=== PATIENT | male | born 1955 | race African-American/Black ===

== ENCOUNTER 2017-09-15 06:15 | Day surgery (SDC) | payer MEDICARE, MEDICAID ==
[~2017-09-15] VITALS: Ht 167.6 cm; Wt 49.5 kg
[~2017-09-15 06:15] MED LIST: CEPH500 PO; LORTA5 PO; SILV1CRE59 TOP
[2017-09-15] MEDS ORDERED: VANCOMYCIN 1 GM/200 ML PREMIX ON-CALL IV SCH (07:00)
[2017-09-15] MEDS ORDERED: VANCOMYCIN 1000 MG/NS 250 ML - implanted port/tunneled catheter IV SCH ×2 (07:00)
[2017-09-15] MEDS ORDERED: ceFAZolin 2 GM PREMIX 50 ML - implanted port/tunneled catheter insertion IV SCH (07:00)
[2017-09-15] MEDS ORDERED: POVIDONE IODINE 5% (ANTISEPSIS KIT) 4 APPLICATIONS EACH NARE SCH (07:00)
[2017-09-15] MEDS ORDERED: CHLORHEXIDINE GLUCONATE 2 % 1 PACK (2 CLOTHS) TOPICAL SCH (07:00)
[2017-09-15 07:09] VITALS: BP 99/70; PULSE 105; RESP 18; TEMP 99; O2SAT 100
[2017-09-15 07:38] LABS: AUTOMATED NEUTROPHIL # 11.5 TH/MM3 (1.8-7.7); BASOPHIL # 0.1 TH/MM3 (0-0.2); BASOPHIL % 0.6 % (0.0-2.0); EOSINOPHIL # 0.2 TH/MM3 (0-0.4); EOSINOPHIL % 1.7 % (0.0-4.0); HEMATOCRIT 34.9 % (39.0-51.0); HEMOGLOBIN 12.3 GM/DL (13.0-17.0); LYMPH % 12.1 % (9.0-44.0); LYMPHOCYTE # 1.8 TH/MM3 (1.0-4.8); MEAN CELL VOLUME 90.9 FL (80.0-100.0); MEAN CORPUSCULAR HEMOGLOBIN 31.9 PG (27.0-34.0); MEAN CORPUSCULAR HGB CONC 35.1 % (32.0-36.0); MEAN PLATELET VOLUME 6.1 FL (7.0-11.0); MONO % 8.5 % (0.0-8.0); MONOCYTE # 1.3 TH/MM3 (0-0.9); NEUT % 77.1 % (16.0-70.0); PLATELET COUNT 608 TH/MM3 (150-450); RED BLOOD COUNT 3.84 MIL/MM3 (4.50-5.90); RED CELL DISTRIBUTION WIDTH 13.4 % (11.6-17.2); WHITE BLOOD COUNT 14.9 TH/MM3 (4.0-11.0)
[2017-09-15] MEDS ORDERED: LIDOCAINE 1%/EPINEPHrine 1:100,000 SOLN 20 ML VIAL ONE (07:46)
[2017-09-15 07:51] LABS: PROTHROMBIN TIME - PATIENT 11.4 SEC (9.8-11.6)
[2017-09-15 07:52] LABS: INTERNATIONAL NORMALIZED RATIO 1.1 RATIO
[2017-09-15] MEDS ORDERED: MIDAZOLAM HCL 2 MG/2 ML VIAL ONE (07:55)
[2017-09-15 09:15] VITALS: BP 118/69; PULSE 88; RESP 18; TEMP 97.7; O2SAT 93
--- NOTE | 2017-09-15 09:17 | PD.RAD ---
Post Procedure Progress Note Pre Procedure Diagnosis: (1) Neck mass Post Procedure Diagnosis: (1) Neck mass Procedure Date: September 15, 2017 Supervising Radiologist: Roberto Jones Proceduralist/Assist: Armando Sharma, RT(R), Xochitl Gamez RT(R) Anesthesia: Conscious Sedation Plan of Activity Patient to Unit: ROPU Patient Condition: Good See PACS Report for procedural detail/treatment Roberto Jones MD September 15, 2017 09:17
[2017-09-15 09:30] VITALS: BP 105/71; PULSE 89; RESP 18; O2SAT 100
[2017-09-15 10:00] VITALS: BP 95/67; PULSE 77; RESP 18; O2SAT 100
--- NOTE | 2017-09-15 10:06 | RADRPT ---
EXAM DATE: 09/15/2017 10:00 AM EDT AGE/SEX: 62 years / Male INDICATIONS: Patient presents with esophageal cancer and right neck mass. CLINICAL DATA: This is the patient's initial encounter. Patient reports that signs and symptoms have been present for 2 months and indicates a pain score of 0/10. MEDICAL/SURGICAL HISTORY: . ETOHSmokingHTNDysphagiaNeck massThyroid disease . COMPARISON: No prior [place] exams available for comparison. ORGAN: Right Neck DEVICE(S): 18 gauge Temno needle The possibility does exist that the tissue obtained will be non-diagnostic. If the sample is non-diag nostic, a repeat biopsy or surgical biopsy may need to be performed. TECHNIQUE: 1. Ultrasound guidance for needle biopsy. 2. Needle biopsy. 3. 4. . . The risks, benefits and alternatives to the procedure were explained and verbal and written consent w as obtained. The site was prepped in sterile fashion. Full sterile technique was used, including ca p, mask, sterile gloves and gown and a large sterile sheet. Hand hygiene and 2% chlorhexidine and/or betadine/alcohol prep was utilized per protocol for cutaneous antisepsis. The skin and subcutaneous tissues were infiltrated with local anesthetic solution. Sterile gel and sterile probe cover were u tilized for ultrasound guidance. With the patient on the ultrasound table, images were obtained. This again confirms a large right lo wer cervical soft tissue tissue mass likely reflecting an enlarged node. Skin overlying the mass was then prepped and draped in usual sterile fashion. 1% lidocaine solution was injected for local anesth esia. A needle was advanced into the identified target and the number of specimens as above obtained and rivera bmitted for pathologic evaluation. In total, five 18-gauge core biopsies were obtained. One sample wa s submitted in RPMI. The patient tolerated the procedure well and left the ultrasound suite in stable condition. FINDINGS: Large lower cervical soft tissue mass consistent with an enlarged lymph node. CONCLUSION: 1. Uncomplicated ultrasound-guided biopsy of large lower cervical soft tissue mass, as above. Electronically signed by: Roberto Jones MD 09/15/2017 10:05 AM EDT
[2017-09-15 10:30] VITALS: BP 102/64; PULSE 77; RESP 18; O2SAT 100
--- NOTE | 2017-10-06 09:37 | RADRPT ---
EXAM DATE: 09/15/2017 9:28 AM EDT AGE/SEX: 62 years / Male INDICATIONS: Patient presents with esophageal cancer in need of port placement for treatment. CLINICAL DATA: This is the patient's initial encounter. Patient reports that signs and symptoms have been present for 2 months and indicates a pain score of 0/10. MEDICAL/SURGICAL HISTORY: . ETOHSmokingHTNDysphasiaNeck massThyroid disease . COMPARISON: No prior exams available for comparison. FLUORO TIME (min): .28 IMAGE SERIES: SEDATION TIME (min): 10 MEDICATION(S): 2mg midazolam (Versed) IV 100mcg fentanyl (Sublimaze) IV DEVICE(S): Left 8F Xcela Plus Port . . PROCEDURE : 1. Continuous pulse oximetry and EKG monitoring. 2. Intravenous conscious sedation. 3. Ultrasound guidance for venous access. 4. Fluoroscopic guided implantable central venous port placement. The patient was placed supine. The neck was prepped in sterile fashion. Full sterile technique was u sed, including cap, mask, sterile gloves and gown, and a large sterile sheet. Hand hygiene and 2% ch lorhexidine Betadine was utilized per protocol for cutaneous antisepsis with appropriate dry time for site. Sterile gel and sterile probe cover were utilized for ultrasound guidance. The skin and sub cutaneous tissues were infiltrated with local anesthetic solution. Under direct ultrasound guidance, central venous access was accomplished in the targeted vessel. The ultrasound images depicting access guidance were stored and saved to PACS for permanent record. A s ubcutaneous pocket was created using blunt dissection. The port was introduced to the pocket. The c atheter tubing was fed through a subcutaneous tunnel to the venotomy site. The catheter tubing was c ut to a suitable length and then was introduced through a valved Peel-Away sheath and positioned with catheter tubing tip at the cavo-atrial junction level. The pocket incision was closed with subcutic ular Vicryl suture. Steri-Strips were applied. The port was flushed and locked with heparin solutio n per protocol. Sterile dressing was applied to the site. The patient tolerated the procedure well. Conscious sedation was performed with the prescribed dosages and duration as above in the presence of an independent trained radiology nurse to assist in the monitoring of the patient. EKG and oximetry remained stable throughout the procedure. The patient tolerated the procedure well and there were no complications. The patient was sent to post anesthesia recovery in stable condition. CONCLUSION: 1. Uncomplicated ultrasound and fluoroscopic guided implanted central venous port catheter placement as described in detail above. An 8 [place] Power port was placed. Electronically signed by: Roberto Jones MD 10/06/2017 9:36 AM EDT
== END 2017-09-15 11:30 | disposition home or self-care (01) ==
LOC: HRAD 06:15 → HRIP 06:36 → HRAD 11:30
PROVIDERS: ATTEND Internal Medicine Hematology & Oncology
DX: C49.0 Malignant neoplasm of connective and soft tissue of head, face and neck (principal); C15.9 Malignant neoplasm of esophagus, unspecified; I10 Essential (primary) hypertension; R47.02 Dysphasia; E07.9 Disorder of thyroid, unspecified; F17.200 Nicotine dependence, unspecified, uncomplicated; Z01.818 Encounter for other preprocedural examination
CPT/HCPCS: 20206; 36561; 76937; 76942; 77001; 85025; 85610; 85730; 88184; 88185; 88305; 88342; 99152; C1788; J0690; J1642; J2250; J3010; J3370; 88341

== ENCOUNTER → 2017-10-12 | Outpatient (CLI) | payer MEDICARE ==
--- NOTE | 2017-10-14 09:16 | RSPPFT ---
DATE OF PROCEDURE: 10/12/17 COMMENTS: Spirometry with FVC of 2.6 predicted 3.5, FEV1 of 1.9 predicted 2.8, FEV1/FVC ratio 72% predicted 81%. There is a mild decrease in the FEF 25-75 implying a mild obstructive lung defect. Mild air trapping is present. Airways resistance is increased. DLCO is decreased. IMPRESSION: On the basis of the above, patient has an obstructive lung defect with no response to bronchodilator. Increased airways resistance and decreased DLCO.
== END ==
LOC: HRSP 09:55
PROVIDERS: ATTEND Internal Medicine Pulmonary Disease
DX: J44.9 Chronic obstructive pulmonary disease, unspecified (principal)
CPT/HCPCS: 36600; 82805; 94060; 94618; 94726; 94729

== ENCOUNTER 2018-03-03 08:55 | Inpatient (IN) ==
[2018-03-03] MEDS ORDERED: Sodium Chlor 0.9% Inj 500 ML IV.CONT ONE (10:45)
[2018-03-03] MEDS ORDERED: Chlorhexidine Gluconate 2% 1 Pack (2 Cloths) TOPICAL ONE (10:45)
[2018-03-03] MEDS ORDERED: Metoprolol Tartrate 25 MG Tablet PO ONE (10:45)
[2018-03-03] MEDS ORDERED: ceFAZolin 2 GM IV; once IV.SIG ONE (11:30)
[2018-03-03] MEDS ORDERED: Bupivacaine/Epinephrine Inj 0.25% 50 ML Vial ONE (12:04)
[2018-03-03] MEDS ORDERED: Sodium Chlor 0.9% Inj 250 ML IV.CONT ONE (12:20)
[2018-03-03] MEDS ORDERED: Phenylephrine/NS 1000 MCG/10ML Syringe IV.PUSH ONE (12:20)
[2018-03-03] MEDS ORDERED: Lidocaine PF 1% Inj 5 ML Syringe INFILTRATN ONE (12:20)
[2018-03-03] MEDS ORDERED: Neostigmine Inj 5 MG/5 ML Syringe IV.PUSH ONE (12:20)
[2018-03-03] MEDS ORDERED: Glycopyrrolate Inj 1 MG/5 ML Syringe IV.PUSH ONE (12:20)
[2018-03-03] MEDS ORDERED: fentaNYL Citrate Inj 100 MCG/2 ML Ampul ONE ×2 (12:41→16:39)
[2018-03-03 14:05] LABS: Hemoglobin 7.9 gm/dL (13.0-17.0); Mean Corpuscular HGB Conc 34.2 % (32.0-36.0); Mean Corpuscular Volume 102.4 fL (80.0-100.0); Mean Platelet Volume 5.6 fL (7.0-11.0); Platelet Count 311 th/mm3 (150-450); Red Blood Count 2.25 mil/mm3 (4.50-5.90); Red Cell Distribution Width 16.1 % (11.6-17.2); White Blood Count 8.9 th/mm3 (4.0-11.0)
[2018-03-03 14:11] LABS: VBG Base Excess -0.4 mmol/L (-2-2); VBG Blood Gas Oxygen Content 5.7 Vol % (9.0-17.0); VBG PCO2 49 mmHG (44-48); VBG PH 7.33 (7.360-7.400); VBG PO2 33 mmHG (35-40)
[2018-03-03] MEDS ORDERED: Morphine Inj 4 MG/ML Vial IV.PUSH PRN (15:37)
[2018-03-03] MEDS ORDERED: Post-op Orders (for Pharmacy) OTHER ONE (15:37)
[2018-03-03] MEDS ORDERED: Naloxone Inj 0.4 MG/ML Vial IV.PUSH PRN (15:37)
[2018-03-03] MEDS ORDERED: Promethazine 25 MG Supp RECTAL PRN (15:37)
[2018-03-03] MEDS ORDERED: *morphine SULFATE 10 MG/ML PERIprocedure ONLY ONE (16:50)
[2018-03-03] MEDS: Pantoprazole Inj 40 MG Vial IV.PUSH SCH (16:56)
--- NOTE | 2018-03-03 19:58 | MP ---
cc: Evgeny Bahena MD DATE OF OPERATION: 03/03/2018 PREOPERATIVE DIAGNOSIS: 1. Stage IV esophageal carcinoma. 2. 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 POSTOPERATIVE DIAGNOSES: 1. Stage IV esophageal carcinoma. 2. 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 PROCEDURES: 1. Resection of large bulky 15 cm right cervical metastatic carcinoma. 2. Closure of 8 x 8 cm defect of the skin with myocutaneous rotational flap. ATTENDING SURGEON: Evgeny Bahena MD ASSISTANTS: Olvin Aldrich MD of Vascular Surgery was present for a portion of the mass resection. INTRAOPERATIVE CONSULTATION: Olvin Aldrich MD of Vascular Surgery to assist in removing the tumor off of the internal jugular vein, as well as other vascular procedures. Please see Dr. Aldrich's full dictated intraoperative procedure. SECOND PAVING BED MAKER: Staff. BLOOD LOSS: 600 mL COMPLICATIONS: A venotomy in right jugular vein area of a lateral branch. FINDINGS: 1. A 15 cm in greatest dimension irregularly shaped cystic metastatic carcinoma of the right neck, densely adhered to the internal jugular vein. 2. A 5 x 9 cm rotational myocutaneous flap from the pectoralis major muscle rotated up to the neck to close skin and soft tissue defect of the right neck. 3. Metastatic carcinoma still present at the thoracic inlet, unresectable through neck incision. INDICATIONS FOR PROCEDURE: The patient is a 62-year-old male who is status post chemotherapy and radiation for stage IV esophageal carcinoma. The patient is currently having severe pain and symptoms from a large right metastatic cervical lymph node. This was the main portion of the patient's morbidity and was causing compressive symptoms and impending airway obstruction. Surgical Oncology was asked to see the patient urgently for consideration of resection as the patient already had radiation to the area and could receive no further radiation. After discussion with the patient and the family about the last resort nature of the surgery and the terminal patient for palliative purposes, I felt and the patient felt this was reasonable to proceed in an attempt to palliate his symptoms in this unfortunate situation. The patient and the family agreed to undergo the procedure. DESCRIPTION OF PROCEDURE: The patient was taken to the operating room and placed in a supine position and placed under general endotracheal anesthesia. The patient's neck and chest were prepped and draped in a sterile fashion. Timeout was performed. Local anesthetic was instilled around the large mass, which was mainly fungating externally from the patient's neck. We used Bovie electrocautery through the skin and subcutaneous tissue down to the platysma muscle 360 degrees around the mass. I then carefully used the right angle to dissect our planes. We dissected the mass off of the right SCM and off of the clavicle inferiorly and off of the level 5 of the neck as well, all with a right angle using Bovie electrocautery as well as some Vicryl ties. We did tie off the external jugular. We continued our dissection. We noted this mass was actually cystic and therefore to debulk it we did remove the external cystic portion of the mass to give us better exposure as we could tell we were entering the zone 2 of the neck near the carotid and jugular vein. These were passed off piecemeal for permanent processing. We at this point noted that the internal jugular vein was densely adherent to the mass and possibly to the carotid artery as well. This was not apparent on MRI, but clearly was clinically apparent and possibly due to inflammation and scar tissue from the patient's previous radiation. Dr. Aldrich, the vascular surgeon distribution operation supervisor was asked to see the patient stat intraoperatively and came and evaluated the patient. He was able to be remove the mass from this vein and the carotid artery and did repair a venotomy. Please see a separate dictated note for his portion of the procedure. We at this point in time, continued the procedure, removed the specimen off from the thoracic inlet in the subclavicular area. There was tumor below the subclavian and in the thoracic inlet which was unable to be resected due to the neck incision not having us through this. Again, this being a palliative resection, we felt that this was not necessary as we had completely resected all the tumor in the neck. We had excellent hemostasis. We turned towards closure. We placed some Surgicel in the wound and placed a 10-[place] drain through a separate stab incision. The drain was sutured in place with a nylon suture. The defect was attempted to be closed. This was way too tight to close, as it was 8 x 8 cm in size. We undermined extensively and it still would not close primarily. I feel it was necessary to remove some tissue. I did take a myocutaneous flap using the superior portion of the right pectoralis muscle with a blood supply laterally. We incised a rhomboid type rotational flap from the superior rectus muscle after incising through the skin and taking off the pectoralis muscle off of the medial insertion. We rotated this up over the clavicle and this filled our defect as far as tissue solorzano and gave us good skin coverage of the skin paddle. We sutured 3-0 Vicryl sutures in a deep dermal fashion to close this as well as approximately 35 or 40 3-0 nylon vertical mattress sutures. We had excellent technical closure with minimal tension throughout the wound and the flap. It was pink and viable. A drain was placed to bulb suction. The patient had antibacterial ointment and sterile dressing applied to the neck. The patient was discontinued from anesthesia and taken to the PACU in stable condition. No apparent complications. All counts were correct. I was present and scrubbed for the entire procedure. Evgeny Bahena MD AWG/ct , 06:38 PM , 06:54 PM
--- NOTE | 2018-03-03 20:39 | P.CONCC ---
History of Present Illness Primary Care Provider: UNKNOWN History of Present Illness: 71-year-old very pleasant female with stage IV esophageal carcinoma, metastatic carcinoma to right cervical lymph node and resulting large cystic mass with compressive symptoms underwent resection of large bulky 15 cm right cervical metastatic carcinoma by Dr. Bahena. Procedure was uncomplicated and postoperatively patient is admitted to ICU. During my assessment the patient still obtunded from general anesthesia unable to provide any further history. Review of Systems unobtainable due to mental condition PMFSH - History History Provided By: Patient - Medical History Medical History: Medical History (Last Reviewed 03/03/18 @ 10:23 by Nevaeh Hinkle) Esophageal cancer, stage IV History of seizure Smoker - Surgical History Surgical History: Surgical History (Last Reviewed 03/03/18 @ 10:23 by Nevaeh Hinkle) History of vascular access device - Tobacco History Second Hand Smoke Exposure: Yes Smoking Status: Current every day smoker Tobacco Type: Cigarettes - Alcohol History How Often Do You Have a Drink Containing Alcohol: 2 to 3 times a week - Substance Use History Substance History: No History of Abuse - Travel History Recent Travel in the [place] Within the Last 8 Weeks: No Recent Travel Out of the Country Within the Last 8 Weeks: No Medications and Allergies Active Medications: Active Medications Hydrocodone Bitart/Acetaminophen ([place] 5/325) 1 tab PO Q4H PRN PRN Reason: PAIN SCALE 3 TO 5 Al Hydroxide/Mg Hydroxide (Milk Of Magnesia Liq) 30 ml PO Q12H PRN PRN Reason: Mild Constipation Diphenhydramine HCl (Benadryl Inj) 25 mg IV.PUSH Q6H PRN PRN Reason: ITCHING Lactated Ringer's (Lr 1000 Ml Inj) 1,000 mls @ 30 mls/hr IV.CONT .Q24H ONE Stop: 03/04/18 10:44 Last Admin: 03/03/18 11:00 Dose: 30 mls/hr Sodium Chloride (Ns Inj) 500 mls @ 30 mls/hr IV.CONT .[id number] ONE Stop: 03/04/18 03:24 Last Admin: 03/03/18 11:10 Dose: Not Given Cefazolin Sodium/Dextrose (Ancef 1 Gm Premix Inj) 1 gm in 50 mls @ 200 mls/hr IV.SIG Q8H JOSUÉ Stop: 03/04/18 13:14 Lactated Ringer's (Lr 1000 Ml Inj) 1,000 mls @ 100 mls/hr IV.CONT .Q10H [facility] Last Admin: 03/03/18 16:52 Dose: 100 mls/hr Miscellaneous Information ([facility] [facility]) 1 each OTHER UNSCH PRN PRN Reason: SEE LABEL COMMENTS Stop: 03/04/18 17:30 Morphine Sulfate (Morphine Inj) 4 mg IV.PUSH Q3H PRN PRN Reason: PAIN 6-10;IF UNABLE TO TAKE PO Naloxone HCl (Narcan Inj) 0.4 mg IV.PUSH UNSCH PRN PRN Reason: SEE LABEL COMMENTS Ondansetron HCl (Zofran Odt) 4 mg PO Q6H PRN PRN Reason: NAUSEA OR VOMITING Ondansetron HCl (Zofran Inj) 4 mg IV.PUSH Q6H PRN PRN Reason: NAUSEA OR VOMITING Pantoprazole Sodium (Protonix Inj) 40 mg IV.PUSH Q24H [facility] Last Admin: 03/03/18 16:56 Dose: 40 mg Promethazine HCl (Phenergan Supp) 25 mg RECTAL Q6H PRN PRN Reason: NAUSEA OR VOMITING Promethazine HCl (Phenergan) 25 mg PO Q6H PRN PRN Reason: NAUSEA OR VOMITING Allergies Allergy/AdvReac Type Severity Reaction Status Date / Time No Known Allergies Allergy Verified 03/03/18 10:23 Home Medications Medication Instructions Recorded Confirmed Type prochlorperazine maleate 10 mg PO Q6-8H PRN 11/04/17 03/03/18 History dexamethasone 1 mg PO DAILY 02/25/18 03/03/18 History omeprazole 20 mg PO DAILY 02/25/18 03/03/18 History Physical Exam Vital signs: Vital Signs 03/03/18 10:54 03/03/18 14:54 03/03/18 15:09 Temperature 98.6 F 96.6 F L 96.8 F L Pulse Rate 86 99 H 103 H Respiratory Rate 20 9 L Blood Pressure 94/70 L 131/77 120/72 Pulse Oximetry 99 100 100 03/03/18 16:28 03/03/18 16:45 03/03/18 17:00 Temperature 97.5 F L Pulse Rate 83 79 82 Respiratory Rate 20 18 18 Blood Pressure 143/74 H 140/66 136/82 Pulse Oximetry 99 97 97 03/03/18 17:15 11/14/18 17:30 03/03/18 17:49 Temperature 97.7 F 98.0 F Pulse Rate 82 85 83 Respiratory Rate 20 20 18 Blood Pressure 123/76 128/79 129/78 Pulse Oximetry 99 99 98 03/03/18 18:00 03/03/18 18:15 03/03/18 18:30 Temperature Pulse Rate 83 82 83 Respiratory Rate 16 12 16 Blood Pressure 123/82 138/76 127/76 Pulse Oximetry 99 100 100 03/03/18 18:45 Temperature Pulse Rate 79 Respiratory Rate 11 L Blood Pressure 129/73 Pulse Oximetry 100 Intake & Output 03/03/18 03/03/18 03/04/18 06:59 18:59 06:59 Intake Total 3550 / 3550 Output Total 600 / 600 40 / 40 Balance 2950 / 2950 -40 / -40 Weight 47.3 kg Intake: IV 50 / 50 Ancef 2 GM Premix Inj 2 gm In 50 / 50 50 ml @ 100 mls/hr IV.SIG ONCE ONE Rx#:[id number] Anesthesia Amount 2700 / 2700 Intake (Blood Product) Amt 800 / 800 Rbc As-3 Leukoreduced Unit 400 / 400 [id number] Rbc As-3 Leukoreduced Unit 400 / 400 [id number] Output: Estimated Blood Loss 600 / 600 Wound Drainage 40 / 40 # 1 Right Lateral Neck 40 / 40 Other: Weight On Admission 8 kg - Constitutional no acute distress - Routine HEENT Exam Head: Present: normocephalic, atraumatic Eye: Present: PERRL ENT: Present: mucous membranes moist - Routine Neck Exam Present: supple. Absent: JVD, carotid bruit Comments: Dressing post mass resection clear and dry - Routine Respiratory Exam Absent: accessory muscle use - Routine Cardiovascular Exam Present: RRR, S1, S2 - Routine Abdominal Exam Present: soft, normoactive bowel sounds - Routine Extremities Exam Absent: cyanosis, clubbing, edema - Routine Skin Exam Present: intact. Absent: cyanosis, erythema - Routine Neurological Exam Present: altered mental status Septic Shock Reassessment Septic shock perfusion: reassessment completed Assessment and Plan - Assessment and Plan Plan: Esophageal cancer, stage IV -Status post resection -Further management per general surgery and oncology History of seizure -Seizure precaution Tobacco use disorder -Monitor for withdrawal -Nicotine patch if indicated DVT GI prophylaxis -Teds SCDs -DVT prophylaxis per surgeon -Regular diet The patient has been comfortable on nasal cannula, hemodynamically stable, not in distress. Critical care medicine will sign off. Please reconsult us if needed. Level 2
[2018-03-03] MEDS: DEXTROSE IV.SIG SCH (21:23)
[2018-03-03] MEDS: CEFAZOLIN IV.SIG SCH (21:23)
--- NOTE | 2018-03-03 21:25 | MP ---
cc: Olvin Aldrich MD DATE OF OPERATION: 03/03/2018 PREOPERATIVE DIAGNOSIS: Metastatic carcinoma of the esophagus to the left neck compressive symptoms. POSTOPERATIVE DIAGNOSIS: Metastatic carcinoma of the esophagus to the left neck compressive symptoms. OPERATIVE PROCEDURE: Resection of the metastatic tumor, resection of the portion of the jugular vein with repair of jugular vein. SURGEON: Olvin Aldrich MD. ANESTHESIA: General. INDICATIONS: This 62-year-old male underwent surgery by Dr. Bahena. I was called in for intraoperative consult and help with vascular structures. At that time, Dr. Bahena had partially remove the tumor. At this point, tumor was stuck to the internal jugular vein lateral wall. The area was examined. There is an area of tumor measuring about 9 cm in length, which is tightly stuck to the internal jugular vein lateral wall. This vein is very thin and at this point, there is a laceration of the vein, which is easily controlled by freeing up the vein and then closing the laceration with a 4-0 Prolene. The tumor was dissected deeper and finally from the jugular vein. There were several arterial bleeders, which were ligated with 2-0 Vicryl stick ties, and then the tumor was completely from the vein. There is another area of bleed between the junction of the subclavian and jugular vein and this is repaired with running 5-0 Prolene and nice control obtained. Majority of tumor was now removed by Dr. Bahena and he continued the case further without me. Olvin Aldrich MD SJ/em , 08:05 PM , 08:11 PM
[2018-03-04] MEDS: CEFAZOLIN IV.SIG SCH ×2 (04:57→13:49)
[2018-03-04] MEDS: DEXTROSE IV.SIG SCH ×2 (04:57→13:49)
[2018-03-04 06:56] LABS: Baso % (Auto) 0.2 % (0.0-2.0); Hematocrit 29.7 % (39.0-51.0); Hemoglobin 10.3 gm/dL (13.0-17.0); Lymph # (Auto) 1.4 th/mm3 (1.0-4.8); Lymph % (Auto) 15.1 % (9.0-44.0); Mean Corpuscular HGB Conc 34.8 % (32.0-36.0); Mean Corpuscular Hemoglobin 32.6 pg (27.0-34.0); Mean Corpuscular Volume 93.7 fL (80.0-100.0); Mean Platelet Volume 5.7 fL (7.0-11.0); Mono # (Auto) 0.9 th/mm3 (0.0-0.9); Mono % (Auto) 10.5 % (0.0-8.0); Neut # (Auto) 6.7 th/mm3 (1.8-7.7); Neut % (Auto) 74.2 % (16.0-70.0); Platelet Count 289 th/mm3 (150-450); Red Blood Count 3.17 mil/mm3 (4.50-5.90); Red Cell Distribution Width 19.7 % (11.6-17.2)
[2018-03-04 07:08] LABS: Anion Gap 10 meq/L (5-15); Blood Urea Nitrogen 7 mg/dL (7-18); Calcium 8.7 mg/dL (8.5-10.1); Carbon Dioxide 27.4 meq/L (21.0-32.0); Chloride 100 meq/L (98-107); Glomerular Filtration Rate Greater Than 89 mL/min (>89); Glucose,Random 111 mg/dL (74-106); Potassium 4.4 meq/L (3.5-5.1); Sodium 137 meq/L (136-145)
--- NOTE | 2018-03-04 08:22 | P.PNCC ---
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 Bahena. Procedure was uncomplicated and postoperatively patient is admitted to ICU. During my assessment the patient still obtunded from general anesthesia unable to provide any further history. 03/04: Awake, alert, conversant this morning. Speech is clear and he protects his airway well. He has no problems with swallowing. Objective Vital Signs / I&O: Vital Signs 03/03/18 10:54 03/03/18 14:54 03/03/18 15:09 Temperature 98.6 F 96.6 F L 96.8 F L Pulse Rate 86 99 H 103 H Respiratory Rate 20 9 L Blood Pressure 94/70 L 131/77 120/72 Pulse Oximetry 99 100 100 03/03/18 16:28 03/03/18 16:45 03/03/18 17:00 Temperature 97.5 F L Pulse Rate 83 79 82 Respiratory Rate 20 18 18 Blood Pressure 143/74 H 140/66 136/82 Pulse Oximetry 99 97 97 03/03/18 17:15 03/03/18 17:30 03/03/18 17:49 Temperature 97.7 F 98.0 F Pulse Rate 82 85 83 Respiratory Rate 20 20 18 Blood Pressure 123/76 128/79 129/78 Pulse Oximetry 99 99 98 03/03/18 18:00 03/03/18 18:15 03/03/18 18:30 Temperature Pulse Rate 83 82 83 Respiratory Rate 16 12 16 Blood Pressure 123/82 138/76 127/76 Pulse Oximetry 99 100 100 03/03/18 18:45 03/03/18 19:00 03/03/18 19:15 Temperature Pulse Rate 79 81 81 Respiratory Rate 11 L 11 L 11 L Blood Pressure 129/73 130/74 125/72 Pulse Oximetry 100 100 100 03/03/18 19:30 03/03/18 19:45 03/03/18 20:00 Temperature 98.3 F Pulse Rate 81 80 79 Respiratory Rate 13 16 11 L Blood Pressure 118/73 113/72 119/72 Pulse Oximetry 100 100 100 03/03/18 20:15 03/03/18 20:30 03/03/18 20:45 Temperature Pulse Rate 89 88 85 Respiratory Rate 16 15 11 L Blood Pressure 133/81 115/72 118/77 Pulse Oximetry 100 100 100 03/03/18 21:00 03/03/18 21:15 03/03/18 21:23 Temperature Pulse Rate 85 84 Respiratory Rate 12 11 L 14 Blood Pressure 111/69 105/70 Pulse Oximetry 100 100 03/03/18 21:30 03/03/18 21:45 03/03/18 22:00 Temperature Pulse Rate 85 83 80 Respiratory Rate 13 11 L 11 L Blood Pressure 110/73 111/72 110/66 Pulse Oximetry 100 99 100 03/03/18 22:15 03/03/18 22:30 03/03/18 22:45 Temperature Pulse Rate 81 82 77 Respiratory Rate 14 14 12 Blood Pressure 112/63 114/64 105/64 Pulse Oximetry 100 100 100 03/03/18 23:00 03/03/18 23:02 03/03/18 23:15 Temperature Pulse Rate 79 76 Respiratory Rate 14 12 12 Blood Pressure 112/67 110/67 Pulse Oximetry 100 100 03/03/18 23:30 03/03/18 23:45 03/04/18 00:00 Temperature 98.7 F Pulse Rate 77 73 74 Respiratory Rate 12 12 10 L Blood Pressure 117/69 115/68 109/66 Pulse Oximetry 100 100 100 03/04/18 00:15 03/04/18 00:30 03/04/18 00:45 Temperature Pulse Rate 71 71 74 Respiratory Rate 14 14 12 Blood Pressure 116/67 112/63 114/65 Pulse Oximetry 100 100 100 03/04/18 01:00 03/04/18 01:15 03/04/18 01:30 Temperature Pulse Rate 70 70 67 Respiratory Rate 13 14 11 L Blood Pressure 114/64 110/64 108/64 Pulse Oximetry 100 100 100 03/04/18 01:45 03/04/18 02:00 03/04/18 02:15 Temperature Pulse Rate 77 66 69 Respiratory Rate 15 13 15 Blood Pressure 120/72 104/64 108/66 Pulse Oximetry 100 100 100 03/04/18 02:41 03/04/18 03:00 03/04/18 04:00 Temperature 98.3 F Pulse Rate 67 85 74 Respiratory Rate 21 29 H 14 Blood Pressure 113/63 Pulse Oximetry 100 100 100 03/04/18 04:09 03/04/18 04:31 03/04/18 05:00 Temperature Pulse Rate 66 66 Respiratory Rate 16 12 12 Blood Pressure 105/66 Pulse Oximetry 100 100 03/04/18 05:50 03/04/18 06:00 Temperature Pulse Rate 71 73 Respiratory Rate 12 Blood Pressure 118/71 Pulse Oximetry 100 100 Intake & Output 03/03/18 03/04/18 03/04/18 18:59 06:59 18:59 Intake Total 3550 / 3550 1340 / 1340 Output Total 600 / 600 1860 / 1860 Balance 2950 / 2950 -520 / -520 Weight 47.3 kg 49.1 kg Intake: IV 50 / 50 1100 / 1100 LR 1000 mL Inj 1,000 ML @ 100 1000 / 1000 mls/hr IV.CONT .Q10H [facility] Rx#: [id number] Ancef 1 GM Premix Inj 1 gm In 100 / 100 50 ml @ 200 mls/hr IV.SIG Q8H [facility] Rx#:[id number] Ancef 2 GM Premix Inj 2 gm In 50 / 50 50 ml @ 100 mls/hr IV.SIG ONCE ONE Rx#:[id number] Oral 240 / 240 Anesthesia Amount 2700 / 2700 Intake (Blood Product) Amt 800 / 800 Rbc As-3 Leukoreduced Unit 400 / 400 [id number] Rbc As-3 Leukoreduced Unit 400 / 400 [id number] Output: Estimated Blood Loss 600 / 600 Urine Amount (Catheter) 1800 / 1800 Condom 1800 / 1800 Wound Drainage 60 / 60 # 1 Right Lateral Neck 60 / 60 Other: Weight On Admission 8 kg Result Diagrams: 03/04/18 05:46 03/04/18 05:46 Objective Remarks: - Constitutional no acute distress, calm - Routine HEENT Exam Head: Present: normocephalic, atraumatic Eye: Present: PERRL ENT: Present: mucous membranes moist - Routine Neck Exam Present: supple. Absent: JVD, carotid bruit Comments: Airway widely patent, no obstructive noises Dressing post mass resection clear and dry - Routine Respiratory Exam Lungs clear, no wheezes or crackles. Comfortable respiratory pattern. Absent: accessory muscle use - Routine Cardiovascular Exam Present: RRR, S1, S2, no JVD. - Routine Abdominal Exam Present: soft, normoactive bowel sounds, no guarding - Routine Extremities Exam Warm limbs, well-perfused. Absent: cyanosis, clubbing, edema - Routine Skin Exam Present: intact. Absent: cyanosis, erythema - Routine Neurological Exam Present: Alert, oriented x3, cooperative. Speech is clear. moves 4 limbs spontaneously. Assessment and Plan - Assessment and Plan Plan: Esophageal cancer, stage IV -Status post resection -Further management per general surgery and oncology History of seizure -Seizure precaution Tobacco use disorder -Monitor for withdrawal -Nicotine patch if indicated DVT GI prophylaxis -Teds SCDs -DVT prophylaxis per surgeon -Regular diet Overall impression: No issues involving the upper airway or swallowing. Speech is clear, patient protects his oropharynx well, comfortable respiratory pattern.
--- NOTE | 2018-03-04 11:36 | P.PNGS ---
Subjective Interval history: Resting in bed No complaints No respiratory compromise and difficulty swallowing Physical Exam Vital signs: Vital Signs 03/03/18 14:54 03/03/18 15:09 03/03/18 16:28 Temperature 96.6 F L 96.8 F L 97.5 F L Pulse Rate 99 H 103 H 83 Respiratory Rate 9 L 20 Blood Pressure 131/77 120/72 143/74 H Pulse Oximetry 100 100 99 03/03/18 16:45 03/03/18 17:00 03/03/18 17:15 Temperature 97.7 F Pulse Rate 79 82 82 Respiratory Rate 18 18 20 Blood Pressure 140/66 136/82 123/76 Pulse Oximetry 97 97 99 03/03/18 17:30 03/03/18 17:49 03/03/18 18:00 Temperature 98.0 F Pulse Rate 85 83 83 Respiratory Rate 20 18 16 Blood Pressure 128/79 129/78 123/82 Pulse Oximetry 99 98 99 03/03/18 18:15 03/03/18 18:30 03/03/18 18:45 Temperature Pulse Rate 82 83 79 Respiratory Rate 12 16 11 L Blood Pressure 138/76 127/76 129/73 Pulse Oximetry 100 100 100 03/03/18 19:00 03/03/18 19:15 03/03/18 19:30 Temperature Pulse Rate 81 81 81 Respiratory Rate 11 L 11 L 13 Blood Pressure 130/74 125/72 118/73 Pulse Oximetry 100 100 100 03/03/18 19:45 03/03/18 20:00 03/03/18 20:15 Temperature 98.3 F Pulse Rate 80 79 89 Respiratory Rate 16 11 L 16 Blood Pressure 113/72 119/72 133/81 Pulse Oximetry 100 100 100 03/03/18 20:30 03/03/18 20:45 03/03/18 21:00 Temperature Pulse Rate 88 85 85 Respiratory Rate 15 11 L 12 Blood Pressure 115/72 118/77 111/69 Pulse Oximetry 100 100 100 03/03/18 21:15 03/03/18 21:23 03/03/18 21:30 Temperature Pulse Rate 84 85 Respiratory Rate 11 L 14 13 Blood Pressure 105/70 110/73 Pulse Oximetry 100 100 03/03/18 21:45 03/03/18 22:00 03/03/18 22:15 Temperature Pulse Rate 83 80 81 Respiratory Rate 11 L 11 L 14 Blood Pressure 111/72 110/66 112/63 Pulse Oximetry 99 100 100 03/03/18 22:30 03/03/18 22:45 03/03/18 23:00 Temperature Pulse Rate 82 77 79 Respiratory Rate 14 12 14 Blood Pressure 114/64 105/64 112/67 Pulse Oximetry 100 100 100 03/03/18 23:02 03/03/18 23:15 03/03/18 23:30 Temperature Pulse Rate 76 77 Respiratory Rate 12 12 12 Blood Pressure 110/67 117/69 Pulse Oximetry 100 100 03/03/18 23:45 03/04/18 00:00 03/04/18 00:15 Temperature 98.7 F Pulse Rate 73 74 71 Respiratory Rate 12 10 L 14 Blood Pressure 115/68 109/66 116/67 Pulse Oximetry 100 100 100 03/04/18 00:30 03/04/18 00:45 03/04/18 01:00 Temperature Pulse Rate 71 74 70 Respiratory Rate 14 12 13 Blood Pressure 112/63 114/65 114/64 Pulse Oximetry 100 100 100 03/04/18 01:15 03/04/18 01:30 03/04/18 01:45 Temperature Pulse Rate 70 67 77 Respiratory Rate 14 11 L 15 Blood Pressure 110/64 108/64 120/72 Pulse Oximetry 100 100 100 03/04/18 02:00 03/04/18 02:15 03/04/18 02:41 Temperature Pulse Rate 66 69 67 Respiratory Rate 13 15 21 Blood Pressure 104/64 108/66 113/63 Pulse Oximetry 100 100 100 03/04/18 03:00 03/04/18 04:00 03/04/18 04:09 Temperature 98.3 F Pulse Rate 85 74 Respiratory Rate 29 H 14 16 Blood Pressure Pulse Oximetry 100 100 03/04/18 04:31 03/04/18 05:00 03/04/18 05:50 Temperature Pulse Rate 66 66 71 Respiratory Rate 12 12 12 Blood Pressure 105/66 118/71 Pulse Oximetry 100 100 100 03/04/18 06:00 03/04/18 07:00 03/04/18 08:00 Temperature 98.3 F Pulse Rate 73 65 65 Respiratory Rate 11 L 12 Blood Pressure 99/63 L 119/71 Pulse Oximetry 100 100 100 Intake & Output 03/03/18 03/04/18 03/04/18 18:59 06:59 18:59 Intake Total 3550 / 3550 1340 / 1340 510 / 510 Output Total 600 / 600 1860 / 1860 Balance 2950 / 2950 -520 / -520 510 / 510 Weight 47.3 kg 49.1 kg Intake: IV 50 / 50 1100 / 1100 0 / 0 LR 1000 mL Inj 1,000 ML @ 100 1000 / 1000 0 / 0 mls/hr IV.CONT .Q10H [facility] Rx#: [id number] Ancef 1 GM Premix Inj 1 gm In 100 / 100 50 ml @ 200 mls/hr IV.SIG Q8H [facility] Rx#:[id number] Ancef 2 GM Premix Inj 2 gm In 50 / 50 50 ml @ 100 mls/hr IV.SIG ONCE ONE Rx#:[id number] Oral 240 / 240 510 / 510 Anesthesia Amount 2700 / 2700 Intake (Blood Product) Amt 800 / 800 Rbc As-3 Leukoreduced Unit 400 / 400 [id number] Rbc As-3 Leukoreduced Unit 400 / 400 [id number] Output: Estimated Blood Loss 600 / 600 Urine Amount (Catheter) 1800 / 1800 Condom 1800 / 1800 Wound Drainage 60 / 60 # 1 Right Lateral Neck 60 / 60 Other: Date of Last Bowel Movement 03/02/18 Weight On Admission 8 kg Narrative: Alert and awake RIGHT neck dressing in place; soft; minimally tender; tender to move head to the right; DANIEL with old brown bloody drainage - Urinary Catheter Management Condom Cath placed during this visit: no Results - Labs 03/05/18 04:26 03/05/18 04:26 Laboratory Results - last 24 hr 03/03/18 03/03/18 03/03/18 13:50 13:50 13:50 WBC 8.9 RBC 2.25 L Hgb 7.9 L Hct 23.0 L MCV 102.4 H MCH 35.0 H MCHC 34.2 RDW 16.1 Plt Count 311 MPV 5.6 L Neut % (Auto) Lymph % (Auto) [place] % (Auto) Eos % (Auto) Baso % (Auto) Neut # (Auto) Lymph # (Auto) [place] # (Auto) Eos # (Auto) Baso # (Auto) WBC Differential Differential Comment Puncture Site Drawn in or Patient Temperature 98.6 VBG pH 7.33 L VBG pCO2 49 H VBG pO2 33 L VBG HCO3 25 VBG O2 Saturation 50 L VBG O2 Content 5.7 L VBG Base Excess -0.4 VBG Carboxyhemoglobin 3.5 VBG Methemoglobin 1.7 Hemoglobin 8.1 L O2 Delivery Device Or Liter Flow 0.00 Vent Setting Or Critical Value No Sodium Potassium Chloride Carbon Dioxide Anion Gap BUN Creatinine Estimated GFR Random Glucose Calcium Blood Type O Positive Antibody Screen Negative MTS Gel Crossmatch See Detail 03/03/18 03/04/18 03/04/18 14:15 05:46 05:46 WBC 9.0 RBC 3.17 L Hgb 10.3 L D Hct 29.7 L MCV 93.7 D MCH 32.6 MCHC 34.8 RDW 19.7 H D Plt Count 289 MPV 5.7 L Neut % (Auto) 74.2 H Lymph % (Auto) 15.1 [place] % (Auto) 10.5 H Eos % (Auto) 0.0 Baso % (Auto) 0.2 Neut # (Auto) 6.7 Lymph # (Auto) 1.4 [place] # (Auto) 0.9 Eos # (Auto) 0.0 Baso # (Auto) 0.0 WBC Differential . Differential Comment Auto diff final Puncture Site Patient Temperature VBG pH VBG pCO2 VBG pO2 VBG HCO3 VBG O2 Saturation VBG O2 Content VBG Base Excess VBG Carboxyhemoglobin VBG Methemoglobin Hemoglobin O2 Delivery Device Liter Flow Vent Setting Critical Value Sodium 137 Potassium 4.4 Chloride 100 Carbon Dioxide 27.4 Anion Gap 10 BUN 7 Creatinine 0.54 L Estimated GFR Greater than 89 Random Glucose 111 H Calcium 8.7 Blood Type Antibody Screen MTS Gel Crossmatch See Detail Assessment and Plan - Assessment (1) Esophageal carcinoma Code(s): C15.9 - Malignant neoplasm of esophagus, unspecified Status: Acute Plan: 62 year old male with stage IV esophageal cancer; metastatic carcinoma to RIGHT cervical LN; POD1 resection of RIGHT cervical LN large bulky tumor; closure of 8x8cm defect of the skin with myocutaneous rotational flap -Stable overnight -No airway compromise -Continue clear liquids -Continue IVF -Hmg stable---recheck tomorrow -OOB after 24 hours post op -Transfer to - Attending Attestation The exam, history, and the medical decision-making described in the above note were completed with the assistance of the mid-level provider. I reviewed and agree with the findings presented. I attest that I had a [id number] encounter with the patient on the same day, and personally performed and documented my assessment and findings in the medical record. postop right neck mass resection and flap closure doing well skin/flap viable airway stable, ok to floor
[2018-03-04] MEDS: Pantoprazole Inj 40 MG Vial IV.PUSH SCH (18:00)
[2018-03-05 06:04] LABS: Baso % (Auto) 0.3 % (0.0-2.0); Eos % (Auto) 0.8 % (0.0-4.0); Hematocrit 28.6 % (39.0-51.0); Lymph # (Auto) 1.4 th/mm3 (1.0-4.8); Lymph % (Auto) 24.4 % (9.0-44.0); Mean Corpuscular HGB Conc 35.1 % (32.0-36.0); Mean Corpuscular Hemoglobin 33.1 pg (27.0-34.0); Mean Corpuscular Volume 94.2 fL (80.0-100.0); Mean Platelet Volume 5.6 fL (7.0-11.0); Mono # (Auto) 0.6 th/mm3 (0.0-0.9); Mono % (Auto) 10.2 % (0.0-8.0); Neut # (Auto) 3.7 th/mm3 (1.8-7.7); Neut % (Auto) 64.3 % (16.0-70.0); Platelet Count 278 th/mm3 (150-450); Red Blood Count 3.04 mil/mm3 (4.50-5.90); Red Cell Distribution Width 19.8 % (11.6-17.2); White Blood Count 5.8 th/mm3 (4.0-11.0)
[2018-03-05 06:30] LABS: Albumin 2.1 g/dL (3.4-5.0); Anion Gap 8 meq/L (5-15); Aspartate Aminotransferase 17 U/L (15-37); Blood Urea Nitrogen 6 mg/dL (7-18); Calcium 8.6 mg/dL (8.5-10.1); Carbon Dioxide 30.1 meq/L (21.0-32.0); Chloride 100 meq/L (98-107); Glomerular Filtration Rate Greater Than 89 mL/min (>89); Glucose,Random 78 mg/dL (74-106); Sodium 138 meq/L (136-145)
[2018-03-05 06:31] LABS: Alanine Aminotransferase 8 U/L (12-78)
[2018-03-05 06:33] LABS: Alkaline Phosphatase 63 U/L (45-117)
--- NOTE | 2018-03-05 12:54 | P.PN ---
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 Bahena. Procedure was uncomplicated and postoperatively patient is admitted to ICU. Obtunded post anesthesia. 03/04: Awake, alert, conversant this morning. Speech is clear and he protects his airway well. He has no problems with swallowing. Hospitalist Notes: 03/05: Seen in his bedroom, no nausea, vomit or diarrhea, continue with Right neck DANIEL in place, no yet removed not yet recommended for discharge by Surgeon. Physical Exam Vital signs: Vital Signs 03/04/18 13:00 03/04/18 16:00 03/04/18 17:00 Temperature 98.8 F 99.3 F Pulse Rate 100 H 78 82 Respiratory Rate 34 H 13 20 Blood Pressure 122/77 112/73 120/78 Pulse Oximetry 98 96 03/04/18 20:00 03/05/18 00:00 03/05/18 08:00 Temperature 97.5 F L 98.9 F 98.6 F Pulse Rate 91 H 76 81 Respiratory Rate 14 16 18 Blood Pressure 116/63 112/71 114/74 Pulse Oximetry 96 95 94 L 03/05/18 11:55 Temperature 98.4 F Pulse Rate 82 Respiratory Rate 18 Blood Pressure 120/75 Pulse Oximetry 94 L Intake & Output 03/04/18 03/05/18 03/05/18 18:59 06:59 18:59 Intake Total 1864 / 1864 1000 / 1000 Output Total 191 / 1910 2500 / 2500 Balance -46 / -46 -1500 / -1500 Weight 52.9 kg Intake: IV 684 / 684 1000 / 1000 LR 1000 mL Inj 1,000 ML @ 100 634 / 634 1000 / 1000 mls/hr IV.CONT .Q10H [facility] Rx#: [id number] Ancef 1 GM Premix Inj 1 gm In 50 / 50 50 ml @ 200 mls/hr IV.SIG Q8H [facility] Rx#:[id number] Oral 1180 / 1180 Output: Urine 2500 / 2500 Urine Amount (Catheter) 1899 / 1900 Condom 1899 Wound Drainage 0 / 0 # 1 Right Lateral Neck 0 / 0 Other: Date of Last Bowel Movement 03/02/18 03/02/18 Narrative: - Constitutional no acute distress, calm - Routine HEENT Exam Head: Present: normocephalic, atraumatic Eye: Present: PERRL ENT: Present: mucous membranes moist - Routine Neck Exam Present: supple. Absent: JVD, carotid bruit Comments: Airway widely patent, no obstructive noises Dressing post mass resection clear and dry - Routine Respiratory Exam Lungs clear, no wheezes or crackles. Comfortable respiratory pattern. Absent: accessory muscle use - Routine Cardiovascular Exam Present: RRR, S1, S2, no JVD. - Routine Abdominal Exam Present: soft, normoactive bowel sounds, no guarding - Routine Extremities Exam Warm limbs, well-perfused. Absent: cyanosis, clubbing, edema - Routine Skin Exam Present: intact. Absent: cyanosis, erythema - Routine Neurological Exam Present: Alert, oriented x3, cooperative. Speech is clear. moves 4 limbs spontaneously. Alert and awake RIGHT neck dressing in place; soft; minimally tender; tender to move head to the right; DANIEL with old brown bloody drainage - Urinary Catheter Management Condom Cath placed during this visit: no Results - Labs CBC & Chem 7: 03/05/18 04:26 03/05/18 04:26 Laboratory Results - last 24 hr 03/05/18 03/05/18 04:26 04:26 WBC 5.8 RBC 3.04 L Hgb 10.0 L Hct 28.6 L MCV 94.2 MCH 33.1 MCHC 35.1 RDW 19.8 H Plt Count 278 MPV 5.6 L Neut % (Auto) 64.3 Lymph % (Auto) 24.4 [place] % (Auto) 10.2 H Eos % (Auto) 0.8 Baso % (Auto) 0.3 Neut # (Auto) 3.7 Lymph # (Auto) 1.4 [place] # (Auto) 0.6 Eos # (Auto) 0.0 Baso # (Auto) 0.0 WBC Differential . Differential Comment Auto diff final Sodium 138 Potassium 4.0 Chloride 100 Carbon Dioxide 30.1 Anion Gap 8 BUN 6 L Creatinine 0.53 L Estimated GFR Greater than 89 Random Glucose 78 Calcium 8.6 Total Bilirubin 0.3 AST 17 ALT 8 L Alkaline Phosphatase 63 Total Protein 7.0 Albumin 2.1 L - Procedures DATE OF OPERATION: 03/03/2018 PREOPERATIVE DIAGNOSIS: Metastatic carcinoma of the esophagus to the left neck compressive symptoms. POSTOPERATIVE DIAGNOSIS: Metastatic carcinoma of the esophagus to the left neck compressive symptoms. OPERATIVE PROCEDURE: Resection of the metastatic tumor, resection of the portion of the jugular vein with repair of jugular vein. SURGEON: Olvin Aldrich MD. Assessment and Plan - Plan Metastatic Carcinoma of the Esophagus to the left Neck with compressive symptoms -Status post resection of the Metastatic tumor, resection of the portion of the Jugular vein with repair of jugular vein. 03/03/18 -not yet removed his right DANIEL drainage, continue management for today awaiting final recommendations by General Surgery. History of seizure -Seizure precaution Tobacco use disorder strongly recommended to stop smoking. -Monitor for withdrawal -Nicotine patch if indicated DVT GI prophylaxis -Teds SCDs -DVT prophylaxis per surgeon -Regular diet Code Status: Full code. Discussed Condition With: Patient and Nurse. Discharge Planning: Expected by tomorrow.
[2018-03-05] MEDS ORDERED: Influenza (Quadrivalent) Vaccine 0.5 ML Syringe IM ONE (14:15)
[2018-03-05] MEDS: Pantoprazole Inj 40 MG Vial IV.PUSH SCH (15:50)
--- NOTE | 2018-03-05 18:05 | P.PNGS ---
Subjective Interval history: Doing well No complaints Up to chair Pain controlled Physical Exam Vital signs: Vital Signs 03/04/18 20:00 03/05/18 00:00 03/05/18 08:00 Temperature 97.5 F L 98.9 F 98.6 F Pulse Rate 91 H 76 81 Respiratory Rate 14 16 18 Blood Pressure 116/63 112/71 114/74 Pulse Oximetry 96 95 94 L 03/05/18 11:55 03/05/18 16:00 Temperature 98.4 F 98.6 F Pulse Rate 82 84 Respiratory Rate 18 18 Blood Pressure 120/75 126/78 Pulse Oximetry 94 L 96 Intake & Output 03/04/18 03/05/18 03/05/18 18:59 06:59 18:59 Intake Total 1864 / 1864 1000 / 1000 0 / 0 Output Total 1910 / 1910 2500 / 2500 Balance -46 / -46 -1500 / -1500 0 / 0 Weight 52.9 kg Intake: IV 684 / 684 1000 / 1000 0 / 0 LR 1000 mL Inj 1,000 ML @ 100 634 / 634 1000 / 1000 0 / 0 mls/hr IV.CONT .Q10H [facility] Rx#: [id number] Ancef 1 GM Premix Inj 1 gm In 50 / 50 50 ml @ 200 mls/hr IV.SIG Q8H [facility] Rx#:[id number] Oral 1180 / 1180 Output: Urine 2500 / 2500 Urine Amount (Catheter) 1900 / 1900 Condom 1900 / 1900 Wound Drainage 10 / 10 0 / 0 # 1 Right Lateral Neck 10 / 10 0 / 0 Other: Date of Last Bowel Movement 03/02/18 03/02/18 Narrative: Alert and awake RIGHT neck--- dressings all removed--- sutures c/d/i; DANIEL drain in place with old brown bloody drainage Neck soft--- no hematoma noted - Urinary Catheter Management Condom Cath placed during this visit: no Results - Labs 03/05/18 04:26 03/05/18 04:26 Laboratory Results - last 24 hr 03/05/18 03/05/18 04:26 04:26 WBC 5.8 RBC 3.04 L Hgb 10.0 L Hct 28.6 L MCV 94.2 MCH 33.1 MCHC 35.1 RDW 19.8 H Plt Count 278 MPV 5.6 L Neut % (Auto) 64.3 Lymph % (Auto) 24.4 [place] % (Auto) 10.2 H Eos % (Auto) 0.8 Baso % (Auto) 0.3 Neut # (Auto) 3.7 Lymph # (Auto) 1.4 [place] # (Auto) 0.6 Eos # (Auto) 0.0 Baso # (Auto) 0.0 WBC Differential . Differential Comment Auto diff final Sodium 138 Potassium 4.0 Chloride 100 Carbon Dioxide 30.1 Anion Gap 8 BUN 6 L Creatinine 0.53 L Estimated GFR Greater than 89 Random Glucose 78 Calcium 8.6 Total Bilirubin 0.3 AST 17 ALT 8 L Alkaline Phosphatase 63 Total Protein 7.0 Albumin 2.1 L Assessment and Plan - Assessment (1) Esophageal carcinoma Code(s): C15.9 - Malignant neoplasm of esophagus, unspecified Status: Acute Plan: 62 year old male with stage IV esophageal cancer; metastatic carcinoma to RIGHT cervical LN; POD1 resection of RIGHT cervical LN large bulky tumor; closure of 8x8cm defect of the skin with myocutaneous rotational flap -No airway compromise -Advanced to soft diet -DC IVF -Hmg stable -OOB -Hopefully home over the weekend -Rx on chart - Attending Attestation The exam, history, and the medical decision-making described in the above note were completed with the assistance of the mid-level provider. I reviewed and agree with the findings presented. I attest that I had a [id number] encounter with the patient on the same day, and personally performed and documented my assessment and findings in the medical record. s/p right neck mass excision stable, pain controlled, tolerating diet DANIEL more clear, can DC home once HH set up, fu with me on Thursday
--- NOTE | 2018-03-05 18:32 | P.DCO ---
- Diagnosis (1) Esophageal carcinoma Status: Acute - Home Health Nursing Order: Wound care and dressing changes, Nursing assessment with vital signs Instructions: bacitracin ointment, xeroform gauze and ABD pad to right neck wound Qdaily DANIEL drain assess and teach - Case Management Consult Case Management Consult-Home Health: Yes - Certification I have seen patient Peter Hernandez on 03/05/18. My clinical findings support the need for the requested home health care services because: Limited mobility due to disease progression, Deconditioned with increased weakness, Limited ability to care for self I certify that my clinical findings support that this patient is homebound because: Post-op weakness, Unsafe to leave home unassisted
--- NOTE | 2018-03-06 07:20 | P.PNGS ---
Subjective Patient reports: feels better, pain is less Physical Exam Vital signs: Vital Signs 03/05/18 08:00 03/05/18 11:55 03/05/18 16:00 Temperature 98.6 F 98.4 F 98.6 F Pulse Rate 81 82 84 Respiratory Rate 18 18 18 Blood Pressure 114/74 120/75 126/78 Pulse Oximetry 94 L 94 L 96 03/05/18 20:00 03/06/18 00:00 Temperature 98.3 F 98.2 F Pulse Rate 77 69 Respiratory Rate 16 16 Blood Pressure 117/62 123/76 Pulse Oximetry 96 98 Intake & Output 03/05/18 03/06/18 03/06/18 18:59 06:59 18:59 Intake Total 2250 / 2250 240 / 240 Output Total 1650 / 1650 1400 / 1400 Balance 600 / 600 -1160 / -1160 Weight 52 kg Intake: IV 0 / 0 0 / 0 LR 1000 mL Inj 1,000 ML @ 100 0 / 0 0 / 0 mls/hr IV.CONT .Q10H [facility] Rx#: [id number] Oral 2250 / 2250 240 / 240 Output: Urine 1650 / 1650 1400 / 1400 Wound Drainage 0 / 0 # 1 Right Lateral Neck 0 / 0 Other: # Voids 1 Date of Last Bowel Movement 03/04/18 # Bowel Movements 0 - Constitutional no acute distress - Routine Neck Exam Present: supple, full ROM Comments: drain inplace, inc c/d/i - Routine Neurological Exam Present: alert, oriented X3, CN II-XII intact - Routine Psychiatric Exam Present: normal affect, normal thought process - Urinary Catheter Management Condom Cath placed during this visit: no Results - Labs 03/05/18 04:26 03/05/18 04:26 Assessment and Plan - Assessment (1) Esophageal carcinoma Code(s): C15.9 - Malignant neoplasm of esophagus, unspecified Status: Acute Plan: 62 year old male with stage IV esophageal cancer; metastatic carcinoma to RIGHT cervical LN; POD3 resection of RIGHT cervical LN large bulky tumor; closure of 8x8cm defect of the skin with myocutaneous rotational flap -DANIEL to bulb sunction -tolerating PO -pain ok - DC home, d/w patient, will fu Thursday in my office, needs HH for large incision , and DANIEL -Rx on chart
[2018-03-06 08:20] VITALS: RESP 17
--- NOTE | 2018-03-06 10:17 | P.PN ---
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 Bahena. Procedure was uncomplicated and postoperatively patient is admitted to ICU. Obtunded post anesthesia. 03/04: Awake, alert, conversant this morning. Speech is clear and he protects his airway well. He has no problems with swallowing. Hospitalist Notes: 03/05: Seen in his bedroom, continue with Right neck DANIEL in place, no yet removed not yet recommended for discharge by Surgeon. 03/06: Stable in his bedroom, seen by his primary General medical billing and coding specialist recommended for DANIEL to bulb suction, Tolerating PO, Pain controlled, Discharge Home, he will follow up him on Thursday in his office by Doctor Evgeny Bahena, needs [facility] for wound care due to Large Incision. RX on chart. Physical Exam Vital signs: Vital Signs 03/05/18 11:55 03/05/18 16:00 03/05/18 20:00 Temperature 98.4 F 98.6 F 98.3 F Pulse Rate 82 84 77 Respiratory Rate 18 18 16 Blood Pressure 120/75 126/78 117/62 Pulse Oximetry 94 L 96 96 03/06/18 00:00 03/06/18 08:00 Temperature 98.2 F 98.4 F Pulse Rate 69 72 Respiratory Rate 16 17 Blood Pressure 123/76 116/71 Pulse Oximetry 98 97 Intake & Output 03/05/18 03/06/18 03/06/18 18:59 06:59 18:59 Intake Total 2250 / 2250 240 / 240 Output Total 1650 / 1650 1400 / 1400 Balance 600 / 600 -1160 / -1160 Weight 52 kg Intake: IV 0 / 0 0 / 0 LR 1000 mL Inj 1,000 ML @ 100 0 / 0 0 / 0 mls/hr IV.CONT .Q10H JOSUÉ Rx#: [id number] Oral 2250 / 2250 240 / 240 Output: Urine 1650 / 1650 1400 / 1400 Wound Drainage 0 / 0 # 1 Right Lateral Neck 0 / 0 Other: # Voids 1 Date of Last Bowel Movement 03/04/18 # Bowel Movements 0 Narrative: - Constitutional no acute distress, calm - Routine HEENT Exam Head: Present: normocephalic, atraumatic Eye: Present: PERRL ENT: Present: mucous membranes moist - Routine Neck Exam Present: supple. Absent: JVD, carotid bruit, Right neck dressed, clean. Comments: Airway widely patent, no obstructive noises Dressing post mass resection clear and dry - Routine Respiratory Exam Lungs clear, no wheezes or crackles. Comfortable respiratory pattern. Absent: accessory muscle use - Routine Cardiovascular Exam Present: RRR, S1, S2, no JVD. - Routine Abdominal Exam Present: soft, normoactive bowel sounds, no guarding - Routine Extremities Exam Warm limbs, well-perfused. Absent: cyanosis, clubbing, edema - Routine Skin Exam Present: intact. Absent: cyanosis, erythema - Routine Neurological Exam Present: Alert, oriented x3, cooperative. Speech is clear. moves 4 limbs spontaneously. - Urinary Catheter Management Condom Cath placed during this visit: no Results - Labs CBC & Chem 7: 03/05/18 04:26 03/05/18 04:26 Laboratory Results - last 24 hr 03/03/18 03/03/18 13:50 14:15 MTS Gel Crossmatch See Detail See Detail - Procedures DATE OF OPERATION: 03/03/2018 PREOPERATIVE DIAGNOSIS: Metastatic carcinoma of the esophagus to the left neck compressive symptoms. POSTOPERATIVE DIAGNOSIS: Metastatic carcinoma of the esophagus to the left neck compressive symptoms. OPERATIVE PROCEDURE: Resection of the metastatic tumor, resection of the portion of the jugular vein with repair of jugular vein. SURGEON: Olvin Aldrich MD. Assessment and Plan - Plan Metastatic Carcinoma of the Esophagus to the left Neck with compressive symptoms -Status post resection of the Metastatic tumor, resection of the portion of the Jugular vein with repair of jugular vein. 03/03/18 -not yet removed his right DANIEL drainage, continue management for today awaiting final recommendations by General Surgery. 03/06: General medical billing and coding specialist recommended for DANIEL to bulb suction, Tolerating PO, Pain controlled, Discharge Home, he will follow up him on Thursday in his office by Doctor Evgeny Bahena, [facility] for wound care due to Large Incision. RX on chart. History of seizure -Seizure precaution Tobacco use disorder strongly recommended to stop smoking. -Monitor for withdrawal -Nicotine patch if indicated DVT GI prophylaxis -Teds SCDs -DVT prophylaxis per surgeon -Regular diet Code Status: Full Code. Discussed Condition With: Patient and Nurse miss Lazar Discussed with Corn Detasseler on the floor. Discharge Planning: Discharge Home today after arrangements for [facility] for wound care performed.
--- NOTE | 2018-03-06 10:20 | P.DS ---
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 Bahena. Procedure was uncomplicated and postoperatively patient is admitted to ICU. During my assessment the patient still obtunded from general anesthesia unable to provide any further history. 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 Bahena. Procedure was uncomplicated and postoperatively patient is admitted to ICU. Obtunded post anesthesia. 03/04: Awake, alert, conversant this morning. Speech is clear and he protects his airway well. He has no problems with swallowing. Hospitalist Notes: 03/05: Seen in his bedroom, continue with Right neck DANIEL in place, no yet removed not yet recommended for discharge by Surgeon. 03/06: Stable in his bedroom, seen by his primary General cryptologic support specialist recommended for DANIEL to bulb suction, Tolerating PO, Pain controlled, Discharge Home, he will follow up him on Thursday in his office by Doctor Evgeny Bahena, needs [facility] for wound care due to Large Incision. RX on chart. Assessment and Plan - Plan Metastatic Carcinoma of the Esophagus to the left Neck with compressive symptoms -Status post resection of the Metastatic tumor, resection of the portion of the Jugular vein with repair of jugular vein. 03/03/18 -not yet removed his right DANIEL drainage, continue management for today awaiting final recommendations by General Surgery. 03/06: General cryptologic support specialist recommended for DANIEL to bulb suction, Tolerating PO, Pain controlled, Discharge Home, he will follow up him on Thursday in his office by Doctor Evgeny Bahena, needs [facility] for wound care due to Large Incision. RX on chart. History of seizure -Seizure precaution Tobacco use disorder strongly recommended to stop smoking. -Monitor for withdrawal -Nicotine patch if indicated DVT GI prophylaxis -Teds SCDs -DVT prophylaxis per surgeon -Regular diet Code Status: Full Code. Discussed Condition With: Patient and Nurse miss Lazar Discussed with Retrieval Specialist on the floor. Discharge Planning: Discharge Home today after arrangements for [facility] for wound care performed. - Time Spent with Patient Total time spent providing and/or coordinating discharge services: Greater than 30 minutes - Quality: VTE Deep Vein Thrombosis/Pulmonary Embolism Present on Admission: No Exam Vital signs: Vital Signs 03/05/18 11:55 03/05/18 16:00 03/05/18 20:00 Temperature 98.4 F 98.6 F 98.3 F Pulse Rate 82 84 77 Respiratory Rate 18 18 16 Blood Pressure 120/75 126/78 117/62 Pulse Oximetry 94 L 96 96 03/06/18 00:00 03/06/18 08:00 Temperature 98.2 F 98.4 F Pulse Rate 69 72 Respiratory Rate 16 17 Blood Pressure 123/76 116/71 Pulse Oximetry 98 97 Intake & Output 03/05/18 03/06/18 03/06/18 18:59 06:59 18:59 Intake Total 2250 / 2250 240 / 240 Output Total 1650 / 1650 1400 / 1400 Balance 600 / 600 -1160 / -1160 Weight 52 kg Intake: IV 0 / 0 0 / 0 LR 1000 mL Inj 1,000 ML @ 100 0 / 0 0 / 0 mls/hr IV.CONT .Q10H JOSUÉ Rx#: [id number] Oral 2250 / 2250 240 / 240 Output: Urine 1650 / 1650 1400 / 1400 Wound Drainage 0 / 0 # 1 Right Lateral Neck 0 / 0 Other: # Voids 1 Date of Last Bowel Movement 03/04/18 # Bowel Movements 0 Narrative: - Constitutional no acute distress, calm - Routine HEENT Exam Head: Present: normocephalic, atraumatic Eye: Present: PERRL ENT: Present: mucous membranes moist - Routine Neck Exam Present: supple. Absent: JVD, carotid bruit, Right neck dressed, clean. Comments: Airway widely patent, no obstructive noises Dressing post mass resection clear and dry - Routine Respiratory Exam Lungs clear, no wheezes or crackles. Comfortable respiratory pattern. Absent: accessory muscle use - Routine Cardiovascular Exam Present: RRR, S1, S2, no JVD. - Routine Abdominal Exam Present: soft, normoactive bowel sounds, no guarding - Routine Extremities Exam Warm limbs, well-perfused. Absent: cyanosis, clubbing, edema - Routine Skin Exam Present: intact. Absent: cyanosis, erythema - Routine Neurological Exam Present: Alert, oriented x3, cooperative. Speech is clear. moves 4 limbs spontaneously. Results Procedures completed during hospitalization: DATE OF OPERATION: 03/03/2018 PREOPERATIVE DIAGNOSIS: Metastatic carcinoma of the esophagus to the left neck compressive symptoms. POSTOPERATIVE DIAGNOSIS: Metastatic carcinoma of the esophagus to the left neck compressive symptoms. OPERATIVE PROCEDURE: Resection of the metastatic tumor, resection of the portion of the jugular vein with repair of jugular vein. SURGEON: Olvin Aldrich MD. Completed studies during hospitalization: Pending at discharge 03/03/18 07:59 Surgical [PTH] Routine Labs on day of discharge: Labs from last 24 hours 03/03/18 03/03/18 14:15 13:50 MTS Gel Crossmatch See Detail See Detail Discharge Plan - Discharge Disposition Patient Disposition: Disch W/Home Health Service - Discharge Condition Condition: Good - Discharge Order Discharge Orders: Discharge Order (Routine); Ordered 03/06/18 Ordered By: Evgeny Bahena Hospitalist [place] for Discharge (Routine); Ordered 03/06/18 Ordered By: Lyle Dawkins - Discharge Details Anticipated Discharge Date: 03/06/18 Discharge Comment: Follow up with Doctor Evgeny Bahena for 03/08/18 in his office perform arrangements for this - Physicians Team Primary Care Provider: UNKNOWN, Attending Provider: Evgeny Bahena Other Providers: Ant Guo MD ; Olvin Aldrich MD ; Lyle Dawkins MD ; [employer],Insurance - Rxs /Orders / Referrals /Forms Prescriptions: New hydrocodone-acetaminophen 5-325 mg Tablet 1 tab PO Q4H PRN (Reason: acute post op pain exception ) Qty: 18 RF: 0 Continue dexamethasone 1 mg Tablet 1 mg PO DAILY omeprazole 20 mg Tablet,Delayed Release (Dr/Ec) 20 mg PO DAILY prochlorperazine maleate 10 mg Tablet 10 mg PO Q6-8H PRN (Reason: Nausea) Discontinued oxycodone-acetaminophen [Percocet] 5-325 mg tablet 1 tab PO Q6H PRN (Reason: pain) Qty: 10 RF: 0 Referrals: Evgeny Bahena MD [Physician] - See Instructions (Appt set for ThursdayMar 15 --call for time ) UNKNOWN, [Primary Care Provider] - See Instructions - Discharge Instructions Additional Instructions: per HH orders, bacitracin ointment, xeroform, ABD pad ok to wash but leave right neck dry
[2018-03-06 13:22] VITALS: BP 117/87; PULSE 95; TEMP 98; O2SAT 96
== END 2018-03-06 15:33 | disposition home or self-care (01) | DRG 824 ==
LOC: HOR 08:55 → HSDI 16:15 → N03 17:48 → N07 03-04 16:53 → UNDODISIN 03-06 13:27
PROVIDERS: ADMIT Surgery; ATTEND Surgery
CPT/HCPCS: 36430; 80048; 80053; 82803; 82805; 85025; 85027; 86850; 86900; 86901; 86923; 88305; 88307; 90658; 90686; 94002; 94656; 94664; 99211; C9113; G0463; J0131; J0690; J1100; J2250; J2270; J2370; J2405; J2710; J3010; J7050; J7120; P9016; Q2038

== ENCOUNTER 2018-04-07 17:39 | Inpatient (IN) ==
--- NOTE | 2018-04-07 18:35 | ED ---
HPI General Chief Complaint: Chest Pain Stated Complaint: Elevated heart rate, hospice sent Time Seen by Provider: 04/07/18 18:22 Source: patient and family Mode of arrival: wheelchair Limitations: other (somewhat poor historian) History of Present Illness HPI narrative: 62-year-old male who presents to the ED for evaluation of tachycardia. Per patient he has a history of throat cancer and had recent surgery about a month ago by Dr. Kely Jalloh. Patient follows with Dr. Kent for oncology and has had chemoradiation in the past but has not had anything for the past month. Per family patient has been complaining of some chest discomfort as well as some shortness of breath that has been ongoing for the past week. They also have a hospice nurse that has been checking the blood pressure as well as the heart rate has noted that the heart rate is elevated. Patient states that he has not been drinking or eating much secondary to not feeling hunger. He states that the discomfort in his chest feels like a pressure in his 4 out of 10. He takes no blood thinners. He states that the nurse call the patient's oncologist Dr. Kent who recommended that the patient comes here. Patient is not DNR. Related Data Home Medications Medication Instructions Recorded Confirmed prochlorperazine maleate 10 mg PO Q6-8H PRN 11/04/17 04/07/18 dexamethasone 1 mg PO DAILY 02/25/18 04/07/18 omeprazole 20 mg PO DAILY 02/25/18 04/07/18 Previous Rx's Medication Instructions Recorded hydrocodone-acetaminophen 1 tab PO Q4H PRN #18 tab 03/05/18 Allergies Allergy/AdvReac Type Severity Reaction Status Date / Time No Known Allergies Allergy Verified 04/07/18 18:30 Review of Systems ROS: all other systems reviewed are negative PMFSH History History Provided By: Patient and Family Member Medical History Medical History Esophageal cancer, stage IV (Acute) History of seizure (Acute) Smoker (Acute) Surgical History Surgical History History of vascular access device (Acute) Social History Social History Substance History: Past History Second Hand Smoke Exposure: Yes Smoking Status: Former smoker Tobacco Type: Cigarettes How Often Do You Have a Drink Containing Alcohol: Never Recent Travel in [facility] within the Last 8 Weeks: No Recent Out of Country Travel within the Last 8 Weeks: No Exam Narrative Exam Narrative: GENERAL: Well appearing but anorexic SKIN: Focused skin assessment warm/dry. HEAD: Atraumatic. Normocephalic. EYES: Pupils equal and round. No scleral icterus. No injection or drainage. ENT: No nasal bleeding or discharge. Mucous membranes pink and moist. Tongue is midline. No uvula deviation. NECK: Trachea midline. No JVD. CARDIOVASCULAR: Tachycardic regular rate and rhythm. No murmur appreciated. RESPIRATORY: No accessory muscle use. Clear to auscultation. Breath sounds equal bilaterally. GASTROINTESTINAL: Abdomen soft, non-tender, nondistended. Hepatic and splenic margins not palpable. MUSCULOSKELETAL: No obvious deformities. No clubbing. No cyanosis. No edema. Full range of motion of the upper and lower extremities bilaterally. 2+ pulses bilaterally. NEUROLOGICAL: Awake and alert. No obvious cranial nerve deficits. Motor grossly within normal limits. Normal speech. PSYCHIATRIC: Appropriate mood and affect; insight and judgment normal. Course Initial Documented Vital Signs Temperature 97.5 F L 04/07/18 18:01 Pulse Rate 142 H 04/07/18 18:01 Respiratory Rate 24 04/07/18 18:01 Blood Pressure 117/81 04/07/18 18:01 Pulse Oximetry 96 04/07/18 18:01 Last Documented Vital Signs Temperature 97.5 F L 04/07/18 18:01 Pulse Rate 113 H 04/07/18 20:20 Respiratory Rate 18 04/07/18 20:20 Blood Pressure 105/77 04/07/18 20:20 Pulse Oximetry 98 04/07/18 20:20 Medical Decision Making [facility] Narrative Medical decision making narrative: 62-year-old male who presents to the ED for evaluation of tachycardia. Patient was properly examined and was found to have signs and symptoms of unclear etiology. Labs and imaging were ordered. There is definetly concern for PE. Labs and imaging showed what appears to be acute kidney failure with what appears to be also a white blood cell count elevation. Otherwise unremarkable blood work. Because of the patient's acute kidney failure he cannot undergo CTA. VQ scan was ordered. At this time patient's tachycardia has improved with just a bolus of fluid. From 140s to his tachycardia went to the 110s and 100s. Patient will be given more fluid. Case discussed with Dr. Lucas agrees admission to her service. Patient was admitted. Family and patient agree with admission. Patient initially told us that he was on hospice but it appears that after further questioning apparently patient is actually home health and not in hospice. Medical Screen Exam Complete: Yes Emergency Medical Condition: Yes Differential Diagnosis Differential Diagnosis: Chest pain versus typical chest pain versus PE versus tachycardia versus A. fib versus dehydration Medical Records Medical records reviewed: Yes I reviewed the patient's medical records. Lab Data Lab results reviewed: Yes I reviewed the patient's lab results. Result diagrams: 04/07/18 18:40 04/07/18 18:40 Lab Results 04/07/18 04/07/18 04/07/18 Range/Units 18:40 18:40 18:40 WBC 23.5 H (4.0-11.0) th/mm3 RBC 4.41 L (4.50-5.90) mil/mm3 Hgb 14.4 (13.0-17.0) gm/dL Hct 43.1 (39.0-51.0) % MCV 97.7 (80.0-100.0) fL MCH 32.5 (27.0-34.0) pg MCHC 33.3 (32.0-36.0) % RDW 18.9 H (11.6-17.2) % Plt Count 332 (150-450) th/mm3 MPV 6.7 L (7.0-11.0) fL Prelim Diff (Auto) Yarder Operator Neut % (Auto) 87.3 H (16.0-70.0) % Lymph % (Auto) 4.4 L (9.0-44.0) % Sebastian % (Auto) 8.1 H (0.0-8.0) % Eos % (Auto) 0.0 (0.0-4.0) % Baso % (Auto) 0.2 (0.0-2.0) % Neut # (Auto) 20.5 H (1.8-7.7) th/mm3 Lymph # (Auto) 1.0 (1.0-4.8) th/mm3 Sebastian # (Auto) 1.9 H (0.0-0.9) th/mm3 Eos # (Auto) 0.0 (0.0-0.4) th/mm3 Baso # (Auto) 0.0 (0.0-0.2) th/mm3 WBC Differential . Differential Comment Auto diff final PT 10.8 (9.8-11.6) sec INR 1.1 Ratio APTT 26.1 (23.4-31.7) sec Sodium 144 (136-145) meq/L Potassium 3.7 (3.5-5.1) meq/L Chloride 105 (98-107) meq/L Carbon Dioxide 27.0 (21.0-32.0) meq/L Anion Gap 12 (5-15) meq/L BUN 82 H (7-18) mg/dL Creatinine 6.49 H (0.60-1.30) mg/dL Estimated GFR 11 L (>89) mL/min Random Glucose 130 H (74-106) mg/dL Calcium 9.8 (8.5-10.1) mg/dL Total Bilirubin 0.7 (0.2-1.0) mg/dL AST 13 L (15-37) U/L ALT 10 L (12-78) U/L Alkaline Phosphatase 95 (45-117) U/L Total Creatine Kinase 142 (39-308) U/L CK-MB (CK-2) Less than 1.0 (0.5-3.6) ng/mL Troponin I 0.03 (0.02-0.05) ng/mL Total Protein 10.8 H (6.4-8.2) g/dL Albumin 3.8 (3.4-5.0) g/dL Imaging Data Attestation: I personally reviewed and interpreted this imaging study as follows : Radiologist's impression: Chest X-Ray 04/07/18 18:22 CONCLUSION: Near total resolution of the lateral left mid consolidation or atelectasis. ECG Data Attestation: I personally reviewed and interpreted this ECG as follows: Interpretation: Follow-up EKG shows sinus tachycardia with a ventricular rate of 119 bpm, IA interval 112 ms no sign of ST elevations or ischemia read by me and attending. Discharge Plan Discharge Disposition Patient Disposition: ED Admit(ED Internal Use Only) Discharge Order Discharge Orders: ED Use Only Admit Order (Routine); Ordered 04/07/18 Ordered By: Romero Ortiz Discharge Details Diagnosis: Acute kidney failure, Esophageal carcinoma, Tachycardia, Leukocytosis Physicians Team ED Provider: Get Young ED Midlevel Provider: Romero Ortiz Primary Care Provider: CHANTALE STAFF,PROVIDER Attending Provider: Tarah Lucas Discharge Interventions Interventions: Vital Signs Last Done: 04/07/18 18:01 Status ED Status: Admitted Patient
[2018-04-07] MEDS ORDERED: Sodium Chlor 0.9% Inj 500 ML IV.SIG SCH (19:00)
--- NOTE | 2018-04-07 19:01 | XR ---
EXAM DATE: 04/07/2018 6:57 PM EST AGE/SEX: 62 years / Male INDICATIONS: Chest pain. elevated heart rate. CLINICAL DATA: This is the patient's initial encounter. Patient reports that signs and symptoms have been present for 1 day and indicates a pain score of 3/10. MEDICAL/SURGICAL HISTORY: . Carcinoma, esophageal. Carcinoma, lung. Smoker. . Port. Malignant mass removed from neck. COMPARISON: [facility], CHEST EXPIRATION ONLY, 11/30/2017. . FINDINGS: There is a CT compatible [id number] in place from the left internal jugular approach. The heart si ze is normal. There some minimal persistent density at the lateral left midlung. This is clearly impr oving from the prior exam. Remaining aspects the lungs are clear. CONCLUSION: Near total resolution of the lateral left mid consolidation or atelectasis. Electronically signed by: Ta Mehta MD Board Certified Radiologist 04/07/2018 7:00 PM EST
[2018-04-07 19:10] LABS: Activated Partial Thrombo Time 26.1 sec (23.4-31.7); INR 1.1 Ratio; Prothrombin Time 10.8 sec (9.8-11.6)
[2018-04-07 19:13] LABS: Baso % (Auto) 0.2 % (0.0-2.0); Hematocrit 43.1 % (39.0-51.0); Hemoglobin 14.4 gm/dL (13.0-17.0); Lymph % (Auto) 4.4 % (9.0-44.0); Mean Corpuscular HGB Conc 33.3 % (32.0-36.0); Mean Corpuscular Hemoglobin 32.5 pg (27.0-34.0); Mean Corpuscular Volume 97.7 fL (80.0-100.0); Mean Platelet Volume 6.7 fL (7.0-11.0); Mono # (Auto) 1.9 th/mm3 (0.0-0.9); Mono % (Auto) 8.1 % (0.0-8.0); Neut # (Auto) 20.5 th/mm3 (1.8-7.7); Neut % (Auto) 87.3 % (16.0-70.0); Platelet Count 332 th/mm3 (150-450); Red Blood Count 4.41 mil/mm3 (4.50-5.90); Red Cell Distribution Width 18.9 % (11.6-17.2); White Blood Count 23.5 th/mm3 (4.0-11.0)
[2018-04-07 19:21] LABS: Albumin 3.8 g/dL (3.4-5.0); Anion Gap 12 meq/L (5-15); Aspartate Aminotransferase 13 U/L (15-37); Blood Urea Nitrogen 82 mg/dL (7-18); Calcium 9.8 mg/dL (8.5-10.1); Chloride 105 meq/L (98-107); Glomerular Filtration Rate 11 mL/min (>89); Glucose,Random 130 mg/dL (74-106); Potassium 3.7 meq/L (3.5-5.1); Sodium 144 meq/L (136-145)
[2018-04-07 19:26] LABS: Alanine Aminotransferase 10 U/L (12-78); Alkaline Phosphatase 95 U/L (45-117); Creatine Kinase 142 U/L (39-308); Total Protein 10.8 g/dL (6.4-8.2); Troponin I 0.03 ng/mL (0.02-0.05)
[2018-04-07] MEDS ORDERED: Vancomycin Inj 1,000 MG in Sodium Chlor 0.9% Inj 250 ML IV.SIG ONE (19:37)
[2018-04-07] MEDS ORDERED: Piperacil/Tazo 3.375 GM Premix 3.375 GM/50 ML PIGGYBACK IV.SIG ONE (19:37)
[2018-04-07] MEDS ORDERED: Sod Chloride 0.9% Inj 1,000 ML IV.SIG SCH (19:45)
[2018-04-07] MEDS ORDERED: Acetaminophen 325 MG Tablet PO PRN (20:54)
[2018-04-07] MEDS ORDERED: Bisacodyl 10 MG Supp RECTAL PRN (20:54)
[2018-04-07 21:21] LABS: Bilirubin,Urine Moderate (Negative); Clarity,Urine Clear (Clear); Color,Urine Yellow (Yellw/Straw); Glucose,Urine (UA) Negative (Negative); Leukocyte Esterase,Urine Trace (Negative); Nitrite,Urine Negative (Negative); Urobilinogen,Urine 0.2 mg/dL (Less than 2)
--- NOTE | 2018-04-07 21:27 | P.HP ---
History of Present Illness Service: [facility] Primary Care Physician: PROVIDER NON STAFF History of Present Illness: 62-year-old male with a past medical history significant for stage IV esophageal carcinoma presents to the emergency department at the recommendation of his home health nurse for the evaluation of tachycardia. The patient was recently hospitalized for resection of a large cystic mass associated with right cervical lymph node metastatic disease. The procedure was uncomplicated and the patient was discharged home. He reports that for the past 3 days he has had anorexia and accompanying nausea and vomiting. He last had chemotherapy approximately 5 months ago. His oncologist is Dr. Kent. On arrival, the patient was noted to be tachycardic with a pulse of 142. He also had acute renal failure with a creatinine of 6.49 with no history of kidney disease. The patient denies any fever/chills. No chest pain or shortness of breath. Endorses constipation with last bowel movement being 3 days ago. No focal neurologic deficits. Inpatient Certification: I certify that the inpatient services were ordered in accordance with Medicare regulations governing the order. This includes certification that hospital inpatient services are reasonable and necessary and in the case of services not specified as inpatient-only under 42 CFR 419.22(n), that they are appropriately provided as inpatient services in accordance to with the 2-midnight benchmark under 43 CFR 412.3(e) Estimated Total Length of Stay (Days): 2 Plans for Post Hospital Care: Not yet determined Review of Systems All other systems reviewed negative except as stated in [facility] - History History Provided By: Patient, Family Member - Medical History Medical History: Medical History (Last Reviewed 04/07/18 @ 21:21 by Tarah Lucas MD) Esophageal cancer, stage IV History of seizure Smoker - Surgical History Surgical History: Surgical History (Last Reviewed 04/07/18 @ 21:21 by Tarah Lucas MD) History of vascular access device - Family History Family History: Family History (Last Updated 04/07/18 @ 21:21 by Tarah Lucas MD) Other Coronary artery disease Diabetes mellitus - Social History I have reviewed the patient's Social History: Yes - Tobacco History Second Hand Smoke Exposure: Yes Smoking Status: Former smoker Tobacco Type: Cigarettes - Alcohol History How Often Do You Have a Drink Containing Alcohol: Never - Substance Use History Substance History: Past History - Travel History Recent Travel in the [facility] Within the Last 8 Weeks: No Recent Travel Out of the Country Within the Last 8 Weeks: No - Immunization History Tetanus Immunization: <5 Years Medications and Allergies Active Medications: Active Medications Acetaminophen (Tylenol) 650 mg PO Q4H PRN PRN Reason: Temp > 100.4 Al Hydroxide/Mg Hydroxide (Milk Of Magnesia Liq) 30 ml PO Q12H PRN PRN Reason: Mild Constipation Bisacodyl (Dulcolax Supp) 10 mg RECTAL DAILY PRN PRN Reason: SEVERE CONSITIPATION Heparin Sodium (Porcine) (Heparin Inj) 5,000 units SQ Q8H [facility] Sodium Chloride (Ns Inj) 1,000 mls @ 100 mls/hr IV.CONT .Q10H [facility] Lactulose (Lactulose Liq) 30 ml PO DAILY PRN PRN Reason: SEVERE CONSITIPATION Non-Formulary Medication (Omeprazole [Omeprazole]) 20 mg PO DAILY [facility] Non-Formulary Medication (Dexamethasone [Dexamethasone]) 1 mg PO DAILY [facility] Ondansetron HCl (Zofran Inj) 4 mg IV.PUSH Q6H PRN PRN Reason: NAUSEA OR VOMITING Sennosides (Senokot) 17.2 mg PO Q12H PRN PRN Reason: Moderate Constipation Sodium Chloride (Ns Flush) 2 ml IV.FLUSH PRN PRN PRN Reason: FLUSH AFTER USING IV ACCESS Sodium Chloride (Ns Flush) 2 ml IV.FLUSH BID [facility] Allergies Allergy/AdvReac Type Severity Reaction Status Date / Time No Known Allergies Allergy Verified 04/07/18 18:30 Home Medications Medication Instructions Recorded Confirmed Type prochlorperazine maleate 10 mg PO Q6-8H PRN 11/04/17 04/07/18 History dexamethasone 1 mg PO DAILY 02/25/18 04/07/18 History omeprazole 20 mg PO DAILY 02/25/18 04/07/18 History Exam Vital signs: Vital Signs 04/07/18 18:01 04/07/18 18:32 04/07/18 20:20 Temperature 97.5 F L Pulse Rate 142 H 113 H Respiratory Rate 24 18 Blood Pressure 117/81 105/77 Pulse Oximetry 96 97 98 Intake & Output 04/07/18 04/07/18 04/08/18 06:59 18:59 06:59 Intake Total 500 / 500 Balance 500 / 500 Weight 95 kg Intake: IV 500 / 500 NS Inj 500 ML @ 1000 mls/hr IV. 500 / 500 SIG BOLUS JOSUÉ Rx#:[id number] Other: Date of Last Bowel Movement 04/07/18 # Bowel Movements 1 Narrative: Gen.: Cachectic appearing -[place] male in no acute distress. Head: Normocephalic. Atraumatic. EENT: Pupils equal round and reactive to light. Nose without drainage. Airway intact. Throat without injection. Cardiovascular: Regular rate and rhythm. No murmurs, rubs or gallops. Respiratory: Lungs clear to auscultation bilaterally. No wheezes or rhonchi. Abdomen: Soft, nontender, nondistended. No peritoneal signs. Musculoskeletal: No gross deformities. No edema. Skin: No obvious rashes or erythema. Neuro: Sensory and motor grossly intact. Cranial nerves II through XII grossly intact. Results - Labs CBC & Chem 7: 04/07/18 18:40 04/07/18 18:40 Labs: Laboratory Results - last 24 hr 04/07/18 04/07/18 04/07/18 18:40 18:40 18:40 WBC 23.5 H RBC 4.41 L Hgb 14.4 Hct 43.1 MCV 97.7 MCH 32.5 MCHC 33.3 RDW 18.9 H Plt Count 332 MPV 6.7 L Prelim Diff (Auto) [place] Neut % (Auto) 87.3 H Lymph % (Auto) 4.4 L Lea % (Auto) 8.1 H Eos % (Auto) 0.0 Baso % (Auto) 0.2 Neut # (Auto) 20.5 H Lymph # (Auto) 1.0 Lea # (Auto) 1.9 H Eos # (Auto) 0.0 Baso # (Auto) 0.0 WBC Differential . Differential Comment Auto diff final PT 10.8 INR 1.1 APTT 26.1 Sodium 144 Potassium 3.7 Chloride 105 Carbon Dioxide 27.0 Anion Gap 12 BUN 82 H Creatinine 6.49 H Estimated GFR 11 L Random Glucose 130 H Calcium 9.8 Total Bilirubin 0.7 AST 13 L ALT 10 L Alkaline Phosphatase 95 Total Creatine Kinase 142 CK-MB (CK-2) Less than 1.0 Troponin I 0.03 Total Protein 10.8 H Albumin 3.8 - Imaging Impressions Chest X-Ray 04/07/18 18:22 CONCLUSION: Near total resolution of the lateral left mid consolidation or atelectasis. Caprini VTE Risk Assessment Caprini VTE Risk Assessment: Moderate/High Risk (score >= 2) Caprini Risk Assessment Model: Point Value = 1 Point Value = 2 Point Value = 3 Point Value = 5 Age 41-60 Minor surgery BMI > 25 kg/m2 Swollen legs Varicose veins or History of unexplained or recurrent spontaneous Oral contraceptives or hormone replacement Sepsis (< 1 month) Serious lung disease, including pneumonia (< 1 month) Abnormal pulmonary function Acute myocardial infarction Congestive heart failure (< 1 month) History of inflammatory bowel disease Medical patient at bed rest Age 61-74 Arthroscopic surgery Major open surgery (> 45 min) Laparoscopic surgery (> 45 min) Malignancy Confined to bed (> 72 hours) Immobilizing plaster cast Central venous access Age >= 75 History of VTE Family history of VTE Factor V Leiden Prothrombin [id number] Lupus anticoagulant Anticardiolipin antibodies Elevated serum homocysteine Heparin-induced thrombocytopenia Other congenital or acquired thrombophilia Stroke (< 1 month) Elective arthroplasty Hip, pelvis, or leg fracture Acute spinal cord injury (< 1 month) Prophylaxis Regimen: Total Risk Factor Score Risk Level Prophylaxis Regimen 0-1 Low Early ambulation 2 Moderate Order ONE of the following: *Sequential Compression Device (SCD) *Heparin 5000 units SQ BID 3-4 Higher Order ONE of the following medications: *Heparin 5000 units SQ TID *Enoxaparin/Lovenox 40 mg SQ daily (WT < 150 kg, CrCl > 30 mL/min) *Enoxaparin/Lovenox 30 mg SQ daily (WT < 150 kg, CrCl > 10-29 mL/min) *Enoxaparin/Lovenox 30 mg SQ BID (WT < 150 kg, CrCl > 30 mL/min) AND/OR *Sequential Compression Device (SCD) 5 or more Highest Order ONE of the following medications: *Heparin 5000 units SQ TID (Preferred with Epidurals) *Enoxaparin/Lovenox 40 mg SQ daily (WT < 150 kg, CrCl > 30 mL/min) *Enoxaparin/Lovenox 30 mg SQ daily (WT < 150 kg, CrCl > 10-29 mL/min) *Enoxaparin/Lovenox 30 mg SQ BID (WT < 150 kg, CrCl > 30 mL/min) AND *Sequential Compression Device (SCD) Assessment and Plan - Plan Assessment/plan: 1. Acute renal failure BUN/creatinine 82/6.49, baseline 0.53 Renal ultrasound pending Nephrology consulted, appreciate assistance Potassium 3.7 IV fluid hydration 2. Tachycardia May be secondary to dehydration IV fluids as above VQ scan pending to evaluate for PE 3. Esophageal cancer Last chemotherapy 5 months ago Continue outpatient follow-up with oncology FEN Renal diet Electrolytes: Monitor and replete as needed NS at 100 cc/hour Heparin
[2018-04-07 21:36] LABS: Bacteria,Urine Rare /hpf; RBC,Urine 0-3 /hpf (0-3); Specific Gravity,Urine 1.017 (1.002-1.035); Squamous Epithelial Cell,Urine 0-5 /hpf (0-5)
[2018-04-07 21:37] LABS: Mucus,Urine Rare /lpf (Occasional)
--- NOTE | 2018-04-07 21:46 | NM ---
EXAM DATE: 04/07/2018 9:39 PM EST AGE/SEX: 62 years / Male INDICATIONS: Chest pain with shortness of breath. CLINICAL DATA: This is the patient's initial encounter. Patient reports that signs and symptoms have been present for 1 day and indicates a pain score of 5/10. MEDICAL/SURGICAL HISTORY: Carcinoma, esophageal. . COMPARISON: [facility] [place], CHEST 1V SINGLE AP, 04/07/2018. . No external comparison. DOSE: 0.79 mCi Tc99m DTPA aerosol 8.7 mCi Tc99m MAA IV TECHNIQUE: Following five minutes of tidal breathing of DTPA aerosol, planar images of the lungs wer e performed in eight projections. The patient was then injected with MAA, and eight-view perfusion s can was performed. FINDINGS: There is a subsegmental triple matched defect seen at the anterior lateral left midlung. There some s ubtle resolving consolidation seen on the chest x-ray in this report. No other subsegmental or segmen madisyn defects are seen. CONCLUSION: Low probability for pulmonary embolus. Electronically signed by: Ta Mehta MD Board Certified Radiologist 04/07/2018 9:44 PM EST
--- NOTE | 2018-04-07 22:34 | US ---
EXAM DATE: 04/07/2018 10:30 PM EST AGE/SEX: 62 years / Male INDICATIONS: Elevated lab values. CLINICAL DATA: This is the patient's initial encounter. Patient reports that signs and symptoms have been present for 1 day and indicates a pain score of 1/10. MEDICAL/SURGICAL HISTORY: Carcinoma, esophageal. History of Seizure. . Vascular access device. COMPARISON: [facility], CT ABDOMEN AND PELVIS W/ CONTRAST, 09/04/2017. . MEASUREMENTS: Right Kidney:__9.6 x 6.1 x 5.0 cm Left Kidney:__10.0 x5.5 x 5.1 cm FINDINGS: Right Kidney: Increased echogenicity. No mass or hydronephrosis. Left Kidney: Normal echogenicity and cortical thickness. No mass or hydronephrosis. Bladder: Within normal limits given the degree of distension. Other: None. CONCLUSION: There is increased echogenicity to the right kidney. The left kidney demonstrate normal echogenicity. Increased echogenicity can be seen with medical renal disease. No hydronephrosis is seen. Electronically signed by: Ta Mehta MD Board Certified Radiologist 04/07/2018 10:33 PM EST
[2018-04-07] MEDS: Heparin - SQ 10,000 UNITS/ML Vial SQ SCH (22:44)
[2018-04-08] MEDS: Sod Chloride 0.9% Inj 1,000 ML IV.CONT SCH ×2 (00:28→09:35)
[2018-04-08] MEDS: Heparin - SQ 10,000 UNITS/ML Vial SQ SCH ×2 (05:52→20:49)
[2018-04-08 08:08] LABS: Alanine Aminotransferase 8 U/L (12-78); Albumin 2.9 g/dL (3.4-5.0); Alkaline Phosphatase 78 U/L (45-117); Anion Gap 10 meq/L (5-15); Aspartate Aminotransferase 9 U/L (15-37); Blood Urea Nitrogen 76 mg/dL (7-18); Calcium 8.8 mg/dL (8.5-10.1); Carbon Dioxide 25.2 meq/L (21.0-32.0); Chloride 117 meq/L (98-107); Glomerular Filtration Rate 26 mL/min (>89); Glucose,Random 103 mg/dL (74-106); Potassium 3.4 meq/L (3.5-5.1); Sodium 152 meq/L (136-145)
--- NOTE | 2018-04-08 08:59 | P.CONNP ---
<ManasajoseLiseth pfeiffer - Last Filed: 04/08/18 08:40> History of Present Illness Service: Nephrology Consult date: 04/08/18 Requesting Physician: Marce Moya Reason for Consult: Acute kidney injury Primary Care Provider: PROVIDER NON STAFF History of Present Illness: Patient is a 62-year-old male with a past medical history significant for stage IV esophageal carcinoma and seizures. Presents to the emergency department at the recommendation of his home health nurse for the evaluation of tachycardia. The patient was recently hospitalized for resection of a large cystic mass associated with right cervical lymph node metastatic disease. He reports that for the past 3 days he has had anorexia and accompanying nausea and vomiting from having soothing stuck in throat. Nephrology is consulted for acute kidney injury with a creatinine of 6.49. Creatinine has improved this morning at 3.01 after IVF administration. Sodium level is high this morning at 152. Renal ultrasound there is increased echogenicity to the right kidney. The left kidney demonstrate normal echogenicity. Increased echogenicity can be seen with medical renal disease. No hydronephrosis is seen. Patient reports mild shortness of breath, denies any chest pain, nausea, or vomiting today. Feels as though what was stuck in throat has now cleared. Review of Systems All other systems reviewed negative except as stated in HPI [facility] - History History Provided By: Patient - Medical History Medical History: Medical History (Last Reviewed 04/07/18 @ 21:21 by Tarah Lucas MD) Esophageal cancer, stage IV History of seizure Smoker - Surgical History Surgical History: Surgical History (Last Reviewed 04/07/18 @ 21:21 by Tarah Lucas MD) History of vascular access device - Family History Family History: Family History (Last Updated 04/07/18 @ 21:21 by Tarah Lucas MD) Other Coronary artery disease Diabetes mellitus - Tobacco History Second Hand Smoke Exposure: Yes Tobacco Use In Past 30 Days: Yes Smoking Status: Heavy tobacco smoker Tobacco Type: Cigarettes - Alcohol History How Often Do You Have a Drink Containing Alcohol: 2 to 3 times a week - Substance Use History Substance History: No History of Abuse - Travel History Recent Travel in the [place] Within the Last 8 Weeks: No Recent Travel Out of the Country Within the Last 8 Weeks: No - Immunization History Tetanus Immunization: Unsure Hx Influenza Vaccine This Season: Yes Medications and Allergies Allergies Allergy/AdvReac Type Severity Reaction Status Date / Time No Known Allergies Allergy Verified 04/07/18 18:30 Home Medications Medication Instructions Recorded Confirmed Type prochlorperazine maleate 10 mg PO Q6-8H PRN 11/04/17 04/07/18 History dexamethasone 1 mg PO DAILY 02/25/18 04/07/18 History omeprazole 20 mg PO DAILY 02/25/18 04/07/18 History Active Medications: Active Medications Acetaminophen (Tylenol) 650 mg PO Q4H PRN PRN Reason: Temp > 100.4 Al Hydroxide/Mg Hydroxide (Milk Of Magnesia Liq) 30 ml PO Q12H PRN PRN Reason: Mild Constipation Bisacodyl (Dulcolax Supp) 10 mg RECTAL DAILY PRN PRN Reason: SEVERE CONSITIPATION Dexamethasone (Decadron) 1 mg PO DAILY [facility] Heparin Sodium (Porcine) (Heparin Inj) 5,000 units SQ Q8H [facility] Last Admin: 04/08/18 05:52 Dose: 5,000 units Sodium Chloride (Ns Inj) 1,000 mls @ 100 mls/hr IV.CONT .Q10H [facility] Last Infusion: 04/08/18 05:51 Dose: 100 mls/hr Lactulose (Lactulose Liq) 30 ml PO DAILY PRN PRN Reason: SEVERE CONSITIPATION Ondansetron HCl (Zofran Inj) 4 mg IV.PUSH Q6H PRN PRN Reason: NAUSEA OR VOMITING Pantoprazole Sodium (Protonix) 20 mg PO DAILY [facility] Sennosides (Senokot) 17.2 mg PO Q12H PRN PRN Reason: Moderate Constipation Sodium Chloride (Ns Flush) 2 ml IV.FLUSH PRN PRN PRN Reason: FLUSH AFTER USING IV ACCESS Sodium Chloride (Ns Flush) 2 ml IV.FLUSH BID [facility] Last Admin: 04/07/18 22:40 Dose: Not Given Exam Vital signs: Vital Signs 04/07/18 18:01 04/07/18 18:32 04/07/18 20:20 Temperature 97.5 F L Pulse Rate 142 H 113 H Respiratory Rate 24 18 Blood Pressure 117/81 105/77 Pulse Oximetry 96 97 98 04/08/18 00:00 04/08/18 03:47 04/08/18 07:32 Temperature 97.9 F 98.3 F 97.9 F Pulse Rate 98 H 94 H 84 Respiratory Rate 16 12 18 Blood Pressure 105/72 113/69 109/72 Pulse Oximetry 97 98 97 Intake & Output 04/07/18 04/08/18 04/08/18 18:59 06:59 18:59 Intake Total 2380 / 2380 Balance 2380 / 2380 Weight 95 kg 95 kg Intake: IV 1900 / 1900 NS Inj 1,000 ML @ 100 mls/hr IV 400 / 400 .CONT .Q10H [facility] Rx#:[id number] NS Inj 1,000 ML @ 1000 mls/hr 1000 / 1000 IV.SIG BOLUS JOSUÉ Rx#:[id number] NS Inj 500 ML @ 1000 mls/hr IV. 500 / 500 SIG BOLUS JOSUÉ Rx#:[id number] Oral 480 / 480 Other: Date of Last Bowel Movement 04/08/18 # Bowel Movements 1 Weight On Admission 95 kg Narrative: GENERAL: Alert and oriented. Thin SKIN: Warm and dry. Dressing on right side of neck region. NECK: Supple, trachea midline. No JVD. CARDIOVASCULAR: Regular rate and rhythm without murmurs, gallops, or rubs. RESPIRATORY: Breath sounds equal bilaterally. No accessory muscle use. GASTROINTESTINAL: Abdomen soft, non-tender, nondistended. +BS MUSCULOSKELETAL: No cyanosis, or edema. BACK: Nontender without obvious deformity. No CVA tenderness. Results - Lab Results 04/07/18 18:40 04/08/18 06:15 Most recent lab results Calcium 8.8 mg/dL (8.5-10.1) D 04/08/18 06:15 Assessment and Plan - Assessment (1) Acute kidney failure Code(s): N17.9 - Acute kidney failure, unspecified Status: Acute Plan: Acute kidney injury with a creatinine of 6.49. MEGAN most likely prerenal related to dehydration. Creatinine has improved this morning at 3.01 after IVF administration. Baseline creatinine less than 1 in September of this year. Renal ultrasound there is increased echogenicity to the right kidney. The left kidney demonstrate normal echogenicity. Increased echogenicity can be seen with medical renal disease. No hydronephrosis is seen. Creatinine has improved, Sodium level is high at 152, recommend to continue IVF but will change to 1/2 NS. Avoid nephrotoxins including NSAIDS and IV contrast. Maintain strict I+O. Hypokalemia will order replacement. Urine osmolarity and sodium. Will follow urinary output and BMP. Labs in AM (2) Leukocytosis Code(s): D72.829 - Elevated white blood cell count, unspecified Status: Acute Plan: Has received antibiotics. Renal dose as appropriate. (3) Tachycardia Code(s): R00.0 - Tachycardia, unspecified Status: Acute Plan: Most likely from dehydration. Improving with IVF's. <Alexey Sanchez - Last Filed: 04/08/18 21:08> History of Present Illness Primary Care Provider: PROVIDER NON STAFF [facility] - Medical History Medical History: Medical History (Last Reviewed 04/07/18 @ 21:21 by Tarah Lucas MD) Esophageal cancer, stage IV History of seizure Smoker - Surgical History Surgical History: Surgical History (Last Reviewed 04/07/18 @ 21:21 by Tarah Lucas MD) History of vascular access device - Family History Family History: Family History (Last Updated 04/07/18 @ 21:21 by Tarah Lucas MD) Other Coronary artery disease Diabetes mellitus Medications and Allergies Active Medications: Active Medications Acetaminophen (Tylenol) 650 mg PO Q4H PRN PRN Reason: Temp > 100.4 Hydrocodone Bitart/Acetaminophen (Alpha 5/325) 2 tab PO Q4H PRN PRN Reason: PAIN SCALE 6 TO 10 Last Admin: 04/08/18 17:35 Dose: 2 tab Al Hydroxide/Mg Hydroxide (Milk Of Magnesia Liq) 30 ml PO Q12H PRN PRN Reason: Mild Constipation Bisacodyl (Dulcolax Supp) 10 mg RECTAL DAILY PRN PRN Reason: SEVERE CONSITIPATION Dexamethasone (Decadron) 1 mg PO DAILY [facility] Last Admin: 04/08/18 10:49 Dose: 1 mg Heparin Sodium (Porcine) (Heparin Inj) 5,000 units SQ Q12HR [facility] Last Admin: 04/08/18 20:49 Dose: 5,000 units Sodium Chloride (1/2 Normal Saline Inj) 1,000 mls @ 100 mls/hr IV.CONT .Q10H [facility] Last Admin: 04/08/18 20:51 Dose: 100 mls/hr Lactulose (Lactulose Liq) 30 ml PO DAILY PRN PRN Reason: SEVERE CONSITIPATION Mupirocin (Bactroban 2% Oint) 1 applicatio TOPICAL BID [facility] Last Admin: 04/08/18 20:42 Dose: Not Given Ondansetron HCl (Zofran Inj) 4 mg IV.PUSH Q6H PRN PRN Reason: NAUSEA OR VOMITING Pantoprazole Sodium (Protonix) 20 mg PO DAILY [facility] Last Admin: 04/08/18 09:22 Dose: 20 mg Sennosides (Senokot) 17.2 mg PO Q12H PRN PRN Reason: Moderate Constipation Sodium Chloride (Ns Flush) 2 ml IV.FLUSH PRN PRN PRN Reason: FLUSH AFTER USING IV ACCESS Sodium Chloride (Ns Flush) 2 ml IV.FLUSH BID [facility] Last Admin: 04/08/18 20:49 Dose: 2 ml Exam Vital signs: Vital Signs 04/08/18 00:00 04/08/18 03:47 04/08/18 07:32 Temperature 97.9 F 98.3 F 97.9 F Pulse Rate 98 H 94 H 84 Respiratory Rate 16 12 18 Blood Pressure 105/72 113/69 109/72 Pulse Oximetry 97 98 97 04/08/18 11:54 04/08/18 16:28 04/08/18 19:54 Temperature 97.8 F 98.3 F 97.6 F Pulse Rate 88 86 83 Respiratory Rate 20 18 12 Blood Pressure 102/61 104/71 102/60 Pulse Oximetry 97 98 96 Intake & Output 04/08/18 04/08/18 04/09/18 06:59 18:59 06:59 Intake Total 2380 / 2380 1320 / 1320 1480 / 1480 Output Total 300 / 300 Balance 2380 / 2380 1020 / 1020 1480 / 1480 Weight 95 kg Intake: IV 1900 / 1900 0 / 0 1000 / 1000 NS Inj 1,000 ML @ 100 mls/hr IV 400 / 400 0 / 0 .CONT .Q10H [facility] Rx#:[id number] 1/2 Normal Saline Inj 1,000 ML 1000 / 1000 @ 100 mls/hr IV.CONT .Q10H [facility] Rx#:[id number] NS Inj 1,000 ML @ 1000 mls/hr 1000 / 1000 IV.SIG BOLUS JOS[facility] Rx#:[id number] NS Inj 500 ML @ 1000 mls/hr IV. 500 / 500 SIG BOLUS JOSUÉ Rx#:[id number] Oral 480 / 480 1320 / 1320 480 / 480 Output: Urine 300 / 300 Other: # Voids 1 Date of Last Bowel Movement 04/08/18 04/08/18 # Bowel Movements 1 Weight On Admission 95 kg Results - Lab Results 04/07/18 18:40 04/08/18 06:15 Most recent lab results Calcium 8.8 mg/dL (8.5-10.1) D 04/08/18 06:15 Assessment and Plan - Assessment (1) Acute kidney failure Code(s): N17.9 - Acute kidney failure, unspecified Status: Acute Plan: Patient seen and examined, agree with above. Patient has MEGAN, possibly pre renal. Check the urine sodium and osmolality. Creatinine started improving, change IVF to 1/2 NS as sodium is elevated. (2) Leukocytosis Code(s): D72.829 - Elevated white blood cell count, unspecified Status: Acute (3) Tachycardia Code(s): R00.0 - Tachycardia, unspecified Status: Acute <Liseth Durbin - Last Filed: 04/08/18 08:40> (1) Acute kidney failure Qualifiers: Acute renal failure type: unspecified Qualified Code(s): N17.9 - Acute kidney failure, unspecified (2) Leukocytosis Qualifiers: Leukocytosis type: unspecified Qualified Code(s): D72.829 - Elevated white blood cell count, unspecified <Alexey Sanchez - Last Filed: 04/08/18 21:08> (1) Acute kidney failure Qualifiers: Acute renal failure type: unspecified Qualified Code(s): N17.9 - Acute kidney failure, unspecified (2) Leukocytosis Qualifiers: Leukocytosis type: unspecified Qualified Code(s): D72.829 - Elevated white blood cell count, unspecified
[2018-04-08] MEDS: Pantoprazole Sodium 20 MG DR Tablet PO SCH (09:22)
[2018-04-08] MEDS: Sodium Chloride 0.45 % Inj 1,000 ML IV.CONT SCH ×2 (09:34→20:51)
--- NOTE | 2018-04-08 12:07 | P.PNIM ---
Subjective Interval history: 62-year-old Spanish gentleman admitted with intractable nausea vomiting and dysphasia, states he choked on some shrimp could not get it down and was unable to eat for 3 days. States he was finally able to pass it is now swallowing better, denies further choking coughing vomiting, found to be in acute renal failure Patient seen and examined, tolerating diet, feels much better, no shortness of breath no abdominal pain Physical Exam Vital signs: Last Vital Signs Temp 97.9 F 04/08/18 07:32 Pulse 84 04/08/18 07:32 Resp 18 04/08/18 07:32 BP 109/72 04/08/18 07:32 Pulse Ox 97 04/08/18 07:32 Intake & Output 04/06/18 04/07/18 04/08/18 04/09/18 06:59 06:59 06:59 06:59 Intake Total 2380 / 2380 0 / 0 Balance 2380 / 2380 0 / 0 Weight 95 kg Thin swsarhyqf-gput-ias gentleman Neck postradiation wound right neck clean base serous exudate Heart S1-S2 regular Lungs clear bilateral Abdomen scaphoid soft nontender Extremities no clubbing cyanosis no edema extreme wasting atrophy Results Labs CBC & Chem 7: 04/07/18 18:40 04/08/18 06:15 Labs: Microbiology 04/07/18 22:00 Blood - Peripheral Aerobic Blood Culture - Preliminary No growth in 1 day 04/07/18 22:00 Blood - Peripheral Anaerobic Blood Culture - Preliminary No growth in 1 day 04/07/18 22:20 Blood - Peripheral Aerobic Blood Culture - Preliminary No growth in 1 day 04/07/18 22:20 Blood - Peripheral Anaerobic Blood Culture - Preliminary No growth in 1 day 04/07/18 18:40 Abscess - Neck Gram Stain - Final Imaging Imaging: Impressions Abdomen/Bladder Ultrasound 04/07/18 00:00 CONCLUSION: There is increased echogenicity to the right kidney. The left kidney demonstrate normal echogenicity. Increased echogenicity can be seen with medical renal disease. No hydronephrosis is seen. Chest X-Ray 04/07/18 18:22 CONCLUSION: Near total resolution of the lateral left mid consolidation or atelectasis. Pulmonary Perfusion Imaging 04/07/18 19:36 CONCLUSION: Low probability for pulmonary embolus. Assessment and Plan (1) Acute kidney failure: Code(s): N17.9 - Acute kidney failure, unspecified Status: Acute (2) Leukocytosis: Code(s): D72.829 - Elevated white blood cell count, unspecified Status: Acute (3) Tachycardia: Code(s): R00.0 - Tachycardia, unspecified Status: Acute Plan ARF - nonobstructive prerenal - cr 6.5 down to 3.01 maintaining uo , nephrology appreciated, cont fluids and electrolyte replacement per nephrology ENT CA - esophageal scca -post radiation/chemo - acute dysphagia due to food bolus obstruction - SEIZURE DO hx, stable not on ae tx for now. decadron R NECK WOUND - post radiation and post bx poor wound healing - doesnt appear infected will continue wound care, start topical bactroban, culture pending EMACIATION severe protein krishan malnutrition (noted 95kg is incorrect more like 95 lbs) - nutrition consult HYPERNATREMIA fluids per nephrology HYPOKALEMIA replace per nephrology TOBACCO ABUSE nicotine addiction - cessation dvt prophylaxis - sq heparin dispo home when creatine improves to baseline 1-2 days. Progress Note: Quality VTE Deep Vein Thrombosis/Pulmonary Embolism Present on Admission: No _ (1) Acute kidney failure Qualifiers: Acute renal failure type: unspecified Qualified Code(s): N17.9 - Acute kidney failure, unspecified (2) Leukocytosis Qualifiers: Leukocytosis type: unspecified Qualified Code(s): D72.829 - Elevated white blood cell count, unspecified
--- NOTE | 2018-04-08 18:16 | ECG ---
Date Performed: 04/07/2018 Time Performed: 18:20:37 PTAGE: 62 years EKG: SINUS TACHYCARDIA BORDERLINE ATRIAL ABNORMALITY LEFT AXIS DEVIATION SOMEWHAT PROMINENT PREC ORDIAL VOLTAGE SC interval should read .24 Compared to PREVIOUS TRACING , heart rate is faster, otherwise no significant change. PREVIOUS TRACIN 11/04/2017 18.05 DOCTOR: Gavino Blancas Interpretating Date/Time 04/08/2018 18:14:52
[2018-04-09 04:00] VITALS: O2SAT 97
[2018-04-09] MEDS: Sodium Chloride 0.45 % Inj 1,000 ML IV.CONT SCH ×2 (04:03→08:51)
[2018-04-09 07:39] VITALS: RESP 20
[2018-04-09 07:44] LABS: Baso % (Auto) 0.1 % (0.0-2.0); Eos # (Auto) 0.1 th/mm3 (0.0-0.4); Eos % (Auto) 1.1 % (0.0-4.0); Hematocrit 30.2 % (39.0-51.0); Hemoglobin 10.4 gm/dL (13.0-17.0); Lymph # (Auto) 1.9 th/mm3 (1.0-4.8); Lymph % (Auto) 19.8 % (9.0-44.0); Mean Corpuscular HGB Conc 34.4 % (32.0-36.0); Mean Corpuscular Volume 98.9 fL (80.0-100.0); Mean Platelet Volume 6.6 fL (7.0-11.0); Mono # (Auto) 0.8 th/mm3 (0.0-0.9); Mono % (Auto) 8.1 % (0.0-8.0); Neut # (Auto) 6.8 th/mm3 (1.8-7.7); Neut % (Auto) 70.9 % (16.0-70.0); Platelet Count 210 th/mm3 (150-450); Red Blood Count 3.05 mil/mm3 (4.50-5.90); Red Cell Distribution Width 18.4 % (11.6-17.2); White Blood Count 9.6 th/mm3 (4.0-11.0)
[2018-04-09 08:03] LABS: Albumin 2.3 g/dL (3.4-5.0); Calcium 8.3 mg/dL (8.5-10.1); Carbon Dioxide 21.4 meq/L (21.0-32.0); Magnesium 1.4 mg/dL (1.5-2.5); Phosphorus 1.7 mg/dL (2.5-4.9); Potassium 3.4 meq/L (3.5-5.1)
[2018-04-09] MEDS: Pantoprazole Sodium 20 MG DR Tablet PO SCH (08:21)
[2018-04-09] MEDS: Heparin - SQ 10,000 UNITS/ML Vial SQ SCH (08:21)
[2018-04-09] MEDS ORDERED: Magnesium Oxide 400 MG Tablet PO ONE (09:00)
[2018-04-09] MEDS ORDERED: Potassium Phos/Sodium Phos 250 MG Tablet PO ONE (09:00)
--- NOTE | 2018-04-09 11:03 | P.DS ---
DS: Providers Date of admission: 04/07/18 20:24 Primary care physician: PROVIDER NON STAFF Consults: 04/07/18 20:44 HUB Only Consult Order Routine Consulting Provider: [employer],Insurance 04/07/18 20:53 Consult to Nephrology Routine Consulting Provider: Alexey Sanchez Does the patient have a Site Physician who follows them?: No Preferred Nephrology Amphibian Crewmember:: Parts Counter Representative Physician Reason for Consultation: ARF Notified:: Service Spoke with:: Norma Date Notified:: 04/07/18 Time Notified:: 20:57 Ordering Provider: SAÚL Brief History from admission: 62-year-old male with a past medical history significant for stage IV esophageal carcinoma presents to the emergency department at the recommendation of his home health nurse for the evaluation of tachycardia. The patient was recently hospitalized for resection of a large cystic mass associated with right cervical lymph node metastatic disease. The procedure was uncomplicated and the patient was discharged home. He reports that for the past 3 days he has had anorexia and accompanying nausea and vomiting. He last had chemotherapy approximately 5 months ago. His oncologist is Dr. Kent. On arrival, the patient was noted to be tachycardic with a pulse of 142. He also had acute renal failure with a creatinine of 6.49 with no history of kidney disease. The patient denies any fever/chills. No chest pain or shortness of breath. Endorses constipation with last bowel movement being 3 days ago. No focal neurologic deficits. DS: Diagnosis Discharge Diagnosis (1) Acute kidney failure: Status: Acute (2) Leukocytosis: Status: Acute (3) Tachycardia: Status: Acute DS: Summary Patient was admitted, started on ivf and seen by nephrology. He states his esophageal obstruction from some shrimp he had eaten, had resolved, and he was able to tolerate p.o. without difficulty. Patient's creatinine improved to baseline with IV fluid hydration, his electrolytes were replaced, he was tolerating diet and ambulating well with physical therapy. I had a lengthy discussion with him regarding soft diet and follow-up with primary care physician. He was otherwise clinically stable for discharge and outpatient follow-up, he is counseled for tobacco cessation as well. Admitting diagnosis: Renal failure Discharge diagnosis: ARF METASTATIC ESOPHAGEAL SQUAMOUS CELL CARCINOMA RIGHT NECK WOUNDpost radiation and biopsy site poor wound healing no evidence of infection. EMACIATION with SEVERE PROTEIN CALORIE MALNUTRITION DEHYDRATION HYPOKALEMIA HYPOPHOSPHATEMIA HYPOMAGNESEMIA TOBACCO ABUSE NICOTINE ADDICTION Time Spent with Patient Total time spent providing and/or coordinating discharge services: Quality: VTE Deep Vein Thrombosis/Pulmonary Embolism Present on Admission: No Exam Narrative Exam Narrative: Emaciated 62-year-old -Albanian gentleman Awake alert and oriented no acute distress Heart S1-S2 regular Lungs clear bilateral no wheeze Abdomen scaphoid nondistended positive bowel sounds nontender Extremities generalized atrophy with muscle wasting, no clubbing cyanosis or edema Right neck wound without purulent drainage, postradiation change Results Labs on day of discharge: Labs from last 24 hours 04/09/18 04/09/18 04/09/18 06:30 06:30 00:59 WBC 9.6 RBC 3.05 L Hgb 10.4 L D Hct 30.2 L MCV 98.9 MCH 34.0 MCHC 34.4 RDW 18.4 H Plt Count 210 D MPV 6.6 L Neut % (Auto) 70.9 H Lymph % (Auto) 19.8 [place] % (Auto) 8.1 H Eos % (Auto) 1.1 Baso % (Auto) 0.1 Neut # (Auto) 6.8 Lymph # (Auto) 1.9 [place] # (Auto) 0.8 Eos # (Auto) 0.1 Baso # (Auto) 0.0 WBC Differential . Differential Comment Auto diff final Sodium 143 Potassium 3.4 L Chloride 114 H Carbon Dioxide 21.4 Anion Gap 8 BUN 39 H Creatinine 1.09 Estimated GFR 83 L Random Glucose 91 Calcium 8.3 L Phosphorus 1.7 L Magnesium 1.4 L Albumin 2.3 L D Urine Osmolality Ur Random Sodium 35 04/09/18 00:59 WBC RBC Hgb Hct MCV MCH MCHC RDW Plt Count MPV Neut % (Auto) Lymph % (Auto) [place] % (Auto) Eos % (Auto) Baso % (Auto) Neut # (Auto) Lymph # (Auto) [place] # (Auto) Eos # (Auto) Baso # (Auto) WBC Differential Differential Comment Sodium Potassium Chloride Carbon Dioxide Anion Gap BUN Creatinine Estimated GFR Random Glucose Calcium Phosphorus Magnesium Albumin Urine Osmolality 528 Ur Random Sodium Preliminary micro results at discharge 04/07/18 22:00 Aerobic Blood Culture - Preliminary Blood - Peripheral No growth in 2 days Anaerobic Blood Culture - Preliminary No growth in 2 days 04/07/18 22:20 Aerobic Blood Culture - Preliminary Blood - Peripheral No growth in 2 days Anaerobic Blood Culture - Preliminary No growth in 2 days Impressions ITS Impressions Abdomen/Bladder Ultrasound 04/07/18 00:00 CONCLUSION: There is increased echogenicity to the right kidney. The left kidney demonstrate normal echogenicity. Increased echogenicity can be seen with medical renal disease. No hydronephrosis is seen. Chest X-Ray 04/07/18 18:22 CONCLUSION: Near total resolution of the lateral left mid consolidation or atelectasis. Pulmonary Perfusion Imaging 04/07/18 19:36 CONCLUSION: Low probability for pulmonary embolus. Discharge Plan Discharge Disposition Patient Disposition: 01 Discharge Home Discharge Condition Condition: Good Discharge Order Discharge Orders: Discharge Order (Routine); Ordered 04/09/18 Ordered By: Erika Floyd Discharge Details Discharge Comment: home after electrolytes replaced Physicians Team Primary Care Provider: NON STAFF,PROVIDER Attending Provider: Erika Floyd Other Providers: [facility],Insurance ; Alexey Sanchez Rxs /Orders / Referrals /Forms Prescriptions: New mupirocin 2 % Ointment 1 applicatio Topical BID Qty: 15 RF: 0 magnesium oxide 400 mg capsule 400 mg PO DAILY Qty: 30 RF: 0 Continue prochlorperazine maleate 10 mg Tablet 10 mg PO Q6-8H PRN (Reason: Nausea) RF: 0 dexamethasone 1 mg Tablet 1 mg PO DAILY RF: 0 omeprazole 20 mg Tablet,Delayed Release (Dr/Ec) 20 mg PO DAILY RF: 0 hydrocodone-acetaminophen 5-325 mg Tablet 1 tab PO Q4H PRN (Reason: acute post op pain exception ) Qty: 18 RF: 0 Referrals: Alexey Sanchez MD [Physician] - See Instructions ( Please call PCP physician 's office to book the appointment to be seen within [2-3d].) NON STAFF,PROVIDER [Primary Care Provider] - See Instructions Discharge Instructions Patient Printed Instructions: Mupirocin (On the skin), Magnesium Oxide (By mouth), Chest Pain (ED) Post Discharge Care Plan Care Plan Goals: Your Health Problems: Goals to Promote Your Health: * To prevent worsening of your condition * To maintain your health at the optimal level Directions to Meet Your Goals: * Take your medications as prescribed * Follow your dietary instruction * Follow activity as directed * Keep your appointments as scheduled * Take your immunizations and boosters as scheduled * If your symptoms worsen call your PCP * If no PCP go to Urgent Care or Emergency Room Smoking is dangerous to your health. Avoid second hand smoke. You may reach the 24-hour crisis hotline for domestic abuse at . Status ED Status: Left Department
[2018-04-09 11:37] VITALS: BP 112/67; PULSE 94; TEMP 98.2
--- NOTE | 2018-04-09 12:28 | P.DIET ---
Nutritional Evaluation Type of nutrition evaluation: initial Nutrition consult regarding: Diet Evaluation Nutrition screening: [facility] Screening comments: 04/08 WLS, [facility] for Malnutrition Subjective Subjective Comments: Pt malnourished, said he was unable to swallow food for 3 days prior to admission. Objective - Diagnosis acute kidney failure, leukocytosis, cancer patient - Objective Body Mass Index: 15.3 % IBW: 67 (IBW = 142lb) Body Weight Used for Calculations: Actual (95lb) Energy Needs - Lower Range (kCal/kg): 40 Energy Needs - Upper Range (kCal/kg): 45 Lower Limit kCal/kg (kCals): 1,720 Upper Limit kCal/kg (kCals): 1,935 Lower Limit Protein Factor (Grams per Kg): 1.2 Upper Limit Protein Factor (Grams per Kg): 1.4 Lower Protein Needs (Protein): 52 Upper Protein Needs (Protein): 60 Dietitian Reviewed in Medical Record: Current diet, Curent medications, Intake & Output, Labs, Medical history Diet Order: renal, 2gNa Oral Diet Intake Amount: Good 75-90% Objective Comments: PMH: esophageal CA stage , seizure, smoker Labs: BUN 39, GFR 83 LBM 04/08, UOP 925mL Assessment Assessment: Pt currently at nutritional risk r/t reported unplanned wt loss and low BMI. Pt stated he had a good appetite during RD visit, said he ate 100% of his breakfast today (04/09). Pts wt shown to be 95kg, but his appearance was malnourished. RD to recommend Ensure Enlive TID as PO supplement for additional nutrition. Continue to monitor PO and supplement intake. Labs reviewed, dietitian following. Recommendations: 1. RD to recommend Ensure Enlive TID as PO supplement for additional nutrition 2. Continue to monitor PO and supplement intake 3. Dietitian following Dietitian to Monitor: Lab values, Supplement acceptance, Intake & Output, PO Intake
--- NOTE | 2018-04-09 12:59 | P.PNNP ---
Subjective Interval history: Seen in AM. Creatinine has improved at 1.09 today. Denies any shortness of breath, chest pain, nausea, or vomiting. <ManasajoseLiseth pfeiffer - Last Filed: 04/09/18 12:55> Physical Exam Vital signs: Vital Signs 04/08/18 16:28 04/08/18 19:54 04/08/18 21:05 Temperature 98.3 F 97.6 F Pulse Rate 86 83 79 Respiratory Rate 18 12 Blood Pressure 104/71 102/60 Pulse Oximetry 98 96 04/08/18 23:42 04/09/18 03:59 04/09/18 07:37 Temperature 98.1 F 97.4 F L 97.9 F Pulse Rate 73 73 71 Respiratory Rate 12 12 20 Blood Pressure 94/65 L 89/64 L 106/67 Pulse Oximetry 98 97 97 04/09/18 11:37 Temperature 98.2 F Pulse Rate 94 H Respiratory Rate 20 Blood Pressure 112/67 Pulse Oximetry 97 Intake & Output 04/08/18 04/09/18 04/09/18 18:59 06:59 18:59 Intake Total 1320 / 1320 3186 / 3186 860 / 860 Output Total 300 / 300 625 / 625 Balance 1020 / 1020 2561 / 2561 860 / 860 Intake: IV 0 / 0 1000 / 1000 860 / 860 NS Inj 1,000 ML @ 100 mls/hr IV 0 / 0 .CONT .Q10H JOSUÉ Rx#:[id number] 1/2 Normal Saline Inj 1,000 ML 1000 / 1000 860 / 860 @ 100 mls/hr IV.CONT .Q10H JOSUÉ Rx#:[id number] Oral 1320 / 1320 720 / 720 Other 1466 / 1466 Output: Urine 300 / 300 625 / 625 Other: Other Intake Source Saline Solution # Voids 1 2 Date of Last Bowel Movement 04/08/18 04/08/18 Narrative: GENERAL: Alert and oriented. Thin SKIN: Warm and dry. Dressing on right side of neck region. NECK: Supple, trachea midline. No JVD. CARDIOVASCULAR: Regular rate and rhythm without murmurs, gallops, or rubs. RESPIRATORY: Breath sounds equal bilaterally. No accessory muscle use. GASTROINTESTINAL: Abdomen soft, non-tender, nondistended. +BS MUSCULOSKELETAL: No cyanosis, or edema. BACK: Nontender without obvious deformity. No CVA tenderness. <Liseth Durbin - Last Filed: 04/09/18 12:55> Vital signs: Vital Signs 04/08/18 23:42 04/09/18 03:59 04/09/18 07:02 Temperature 98.1 F 97.4 F L Pulse Rate 73 73 67 Respiratory Rate 12 12 Blood Pressure 94/65 L 89/64 L Pulse Oximetry 98 97 04/09/18 07:37 04/09/18 11:09 04/09/18 11:37 Temperature 97.9 F 98.2 F Pulse Rate 71 98 H 94 H Respiratory Rate 20 20 Blood Pressure 106/67 112/67 Pulse Oximetry 97 97 Intake & Output 04/09/18 04/09/18 04/10/18 06:59 18:59 06:59 Intake Total 3186 / 3186 860 / 860 Output Total 625 / 625 Balance 2561 / 2561 860 / 860 Intake: IV 1000 / 1000 860 / 860 1/2 Normal Saline Inj 1,000 ML 1000 / 1000 860 / 860 @ 100 mls/hr IV.CONT .Q10H JOSUÉ Rx#:[id number] Oral 720 / 720 Other 1466 / 1466 Output: Urine 625 / 625 Other: Other Intake Source Saline Solution # Voids 2 Date of Last Bowel Movement 04/08/18 <Alexye Sanchez - Last Filed: 04/09/18 21:20> Assessment and Plan - Assessment (1) Acute kidney failure Code(s): N17.9 - Acute kidney failure, unspecified Status: Acute Qualifiers: Acute renal failure type: unspecified Qualified Code(s): N17.9 - Acute kidney failure, unspecified Plan: Acute kidney injury with a creatinine of 6.49 on day of admission MEGAN most likely prerenal related to dehydration. Baseline creatinine less than 1 in September of this year. Renal ultrasound there is increased echogenicity to the right kidney. The left kidney demonstrate normal echogenicity. Increased echogenicity can be seen with medical renal disease. No hydronephrosis is seen. Creatinine has improved at 1.09 today, Magnesium and phosphorus levels low, replacement has been added. Plan for discharge. Per nephrology cleared. (2) Leukocytosis Code(s): D72.829 - Elevated white blood cell count, unspecified Status: Acute Qualifiers: Leukocytosis type: unspecified Qualified Code(s): D72.829 - Elevated white blood cell count, unspecified (3) Tachycardia Code(s): R00.0 - Tachycardia, unspecified Status: Acute Plan: Resolved. <Liseth Durbin - Last Filed: 04/09/18 12:55> - Assessment (1) Acute kidney failure Code(s): N17.9 - Acute kidney failure, unspecified Status: Acute Qualifiers: Acute renal failure type: unspecified Qualified Code(s): N17.9 - Acute kidney failure, unspecified Plan: Patient has MEGAN, and most likely pre renal. Creatinine is now 1.0, can be discharged. (2) Leukocytosis Code(s): D72.829 - Elevated white blood cell count, unspecified Status: Acute Qualifiers: Leukocytosis type: unspecified Qualified Code(s): D72.829 - Elevated white blood cell count, unspecified (3) Tachycardia Code(s): R00.0 - Tachycardia, unspecified Status: Acute <Alexey Sanchez - Last Filed: 04/09/18 21:20>
== END 2018-04-09 13:34 | disposition home or self-care (01) ==
LOC: NEPC 17:39 → NEDA 20:24 → NEPFCDU 23:05 → UNDODISIN 04-08 17:03
PROVIDERS: ADMIT Internal Medicine; ATTEND Internal Medicine
DX: E43 Unspecified severe protein-calorie malnutrition; K59.00 Constipation, unspecified; K22.2 Esophageal obstruction; R11.2 Nausea with vomiting, unspecified; R00.0 Tachycardia, unspecified; E87.6 Hypokalemia; E87.0 Hyperosmolality and hypernatremia; R06.02 Shortness of breath; F17.210 Nicotine dependence, cigarettes, uncomplicated; E83.39 Other disorders of phosphorus metabolism; N17.9 Acute kidney failure, unspecified; C77.0 Secondary and unspecified malignant neoplasm of lymph nodes of head, face and neck; Z83.3 Family history of diabetes mellitus; Z82.49 Family history of ischemic heart disease and other diseases of the circulatory system; E83.42 Hypomagnesemia; R64 Cachexia; C15.9 Malignant neoplasm of esophagus, unspecified; Z92.21 Personal history of antineoplastic chemotherapy; D72.829 Elevated white blood cell count, unspecified; R07.89 Other chest pain; E86.0 Dehydration; R47.02 Dysphasia